=== PATIENT | female | born 1945 | race Caucasian/White ===

== ENCOUNTER 2019-11-18 09:04 | Emergency (ER) | payer MEDICARE, SELFPAY ==
--- NOTE | ~2019-11-18 | CT_ITS ---
EXAMINATION: CT abdomen pelvis w con DATE: 11/18/2019 11:39 INDICATION: Left lower quadrant abdominal pain. TECHNIQUE: Computed tomography (CT) of the abdomen and pelvis was performed with 100 mL Omnipaque 350 intravenous contrast. Automated exposure control and iterative reconstruction technique were employe d. The dose-length product was 418.86 mGy-cm. COMPARISON: CT abdomen and pelvis 10/23/2016 FINDINGS: The visualized portions of the lung bases demonstrate minimal atelectasis. No pleural effus ion. The heart size is normal. No pericardial effusion. There are cysts in the liver measuring up to 3.7 cm. Calcifications in the spleen are consistent with old granulomatous disease. There is an area of peripheral low attenuation in the spleen, new from 10/23/2016, likely an infarct. The pancreas and adrenal glands are normal. There is cortical thinning of the kidneys. There is a 6 mm cyst in right k idney. There are scattered diverticula in the colon. There is fat stranding around a sigmoid divertic ulum, consistent with diverticulitis. There are no dilated loops of bowel. The appendix is not visual ized. There are no pathologically enlarged lymph nodes. There is trace pelvic ascites. There is a jesus ign bone island in right femoral head. There is severe lumbar spondylosis. There are bridging endplat e osteophytes at multiple levels in the thoracic spine, consistent with diffuse idiopathic skeletal h yperostosis (DISH). IMPRESSION: 1. Mild acute sigmoid diverticulitis. No perforation or abscess. 2. Small splenic infarct. Reviewed, dictated and finalized at location A.
[2019-11-18 09:08] VITALS: BP 138/73; PULSE 117; RESP 19; TEMP 37.7; O2SAT 96
--- NOTE | 2019-11-18 09:09 | ED.GENADULT ---
HPI - General Adult General Chief complaint: Abdominal Pain Stated complaint: Abdominal Pain History of Present Illness HPI narrative: Patient is a 74-year-old female who presents to the ER with complaints of body aches and tremors. Patient reports 1 day ago she began feeling unwell and had some left lower quadrant abdominal discomfort. It was not associated with any urinary symptoms or diarrhea. Patient has had persistent nausea today with an episode of emesis. Today she has been having body shaking and tremors. Unable to go into detail but it sounds like it may be rigors from having a fever. Denies any runny nose/sore throat/productive cough. She reports she has been staying home but went out to the grocery store the other day. Otherwise no known sick contacts. Increased anxiety due to COVID in the community. Related Data Allergies Allergy/AdvReac Type Severity Reaction Status Date / Time No Known Allergies Allergy Unknown Unverified 11/18/19 09:09 Review of Systems Review of Systems: All systems reviewed & are unremarkable except as noted in HPI and below Constitutional: Constitutional: Denies chills, Reports fatigue and Reports fever(s) ENT: Denies nasal congestion and Denies sore throat Cardiovascular: Cardiovascular: Denies chest pain Respiratory: Respiratory: Denies cough, Denies dyspnea and Denies wheezing Gastrointestinal: Gastrointestinal: Reports abdominal pain, Denies diarrhea, Reports nausea and Reports vomiting PMFSH Past Medical History Medical History (Updated 11/18/19 @ 13:20 by Amando Doran MD) Hypothyroidism Surgical History Surgical History (Updated 11/18/19 @ 09:18 by Amando Doran MD) History of cholecystectomy Family History Family History (Updated 03/20/16 @ 13:18 by DOCTOR UNKNOWN) Father Hypertension Grandparent Cerebrovascular accident Diabetes mellitus Sibling Family history of Parkinson's disease Mother Family history of diabetes mellitus in first degree relative Other Family history of cardiovascular disease Social History Social History Smoking status: Never smoker Second hand tobacco smoke exposure: No Alcohol intake: current Gender identity (if verbalized by the patient): Female Exam Narrative: Exam Narrative: GENERAL: Fatigued-appearing, well-nourished, and in no acute distress. HEAD: Normocephalic, atraumatic. ENT: Dry mucous membranes. CHEST: Clear to auscultation. No respiratory distress. HEART: Tachycardic and regular. Normal peripheral pulses. ABDOMEN: Soft, nontender, nondistended. EXTREMITIES: Normal range of motion. No edema. SKIN: Warm, dry, no rash. NEURO: Alert and oriented x3. PSYCH: Normal mood and affect. Course Course Emergency Course: Patient informed of results. Contacted Dr. Fragoso regarding splenic infarct, he would like her to contact office for close follow-up. Patient be started on Cipro and Flagyl. Discharge home. Vital Signs Vital signs: Vital Signs Temperature 99.8 F H 11/18/19 09:08 Pulse Rate 117 H 11/18/19 09:08 Respiratory Rate 19 11/18/19 09:08 Blood Pressure 138/73 11/18/19 09:08 Pulse Oximetry 96 11/18/19 09:08 Temperature 99.8 F H 11/18/19 09:08 Pulse Rate 103 H 11/18/19 11:56 Respiratory Rate 19 11/18/19 11:56 Blood Pressure 124/52 L 11/18/19 11:56 Pulse Oximetry 96 11/18/19 11:56 Medical Decision Making Vital Signs Vital Signs: Vital Signs Temperature 99.8 F H 11/18/19 09:08 Pulse Rate 117 H 11/18/19 09:08 Respiratory Rate 19 11/18/19 09:08 Blood Pressure 138/73 11/18/19 09:08 Pulse Oximetry 96 11/18/19 09:08 Temperature 99.8 F H 11/18/19 09:08 Pulse Rate 103 H 11/18/19 11:56 Respiratory Rate 19 11/18/19 11:56 Blood Pressure 124/52 L 11/18/19 11:56 Pulse Oximetry 96 11/18/19 11:56 Lab Data Result diagrams: 11/18/19 09:16 11/18/19 09:16 Labs: Lab Results 11/18/1911/17
[2019-11-18] MEDS: ONDANSETRON INJ 4 MG/2 ML VIAL IV PUSH (09:20)
[2019-11-18] MEDS: SODIUM CHLORIDE 0.9% IV 1,000 ML 999 ML IV CONT (09:20)
[2019-11-18 09:26] LABS: Basophils Percent Auto 0.6 % (0.2-1.2); Eosinophils Absolute Auto 0.1 K/mm3 (0-0.3); Eosinophils Percent Auto 1.1 % (0-4.4); Hematocrit 41.5 % (37.0-47.0); Hemoglobin 14.2 g/dL (12.0-15.0); Immature Granulocyte Absolute 0.04 K/mm3 (0.00-0.031); Immature Granulocyte Percent A 0.7 % (0-0.5); Lymphocytes Absolute Auto 0.41 K/mm3 (0.9-3.2); Lymphocytes Percent Auto 7.6 % (18.3-44.2); Mean Corpuscular HGB Conc 34.2 g/dl (32-36); Mean Corpuscular Hemoglobin 31.2 pg (26-34); Mean Corpuscular Volume 91.2 fl (80-100); Mean Platelet Volume 10.1 fl (7.4-10.4); Monocytes Percent Auto 0.6 % (2.6-8.5); Neutrophils Absolute Auto 4.8 K/mm3 (1.3-6.7); Neutrophils Percent Auto 89.4 % (45.5-73.1); Platelet Count Result 146 k/mm3 (150-375); Red Blood Count 4.55 M/mm3 (4.2-5.4); Red Cell Distribution Width 11.8 % (11.5-14.5); White Blood Count 5.4 K/mm3 (4.5-10.0)
[2019-11-18 09:30] LABS: Add Urine Microscopic? YES; Appearance Urine Clear (Clear); Bilirubin Urine Negative (Negative); Blood Urine 2+ (Negative); Color Urine Yellow (Yellow); Glucose Urine UA Negative (Negative); Ketones Urine Negative (Negative); Leukocyte Esterase Ur Negative LEU/UL (Negative); Mucus Urine Rare /lpf; Nitrate Urine Negative (Negative); Protein Urine Negative (Negative); Specific Grav Ur 1.014 (1.001-1.035); Squamous Epithelial Cell Urine Rare /hpf (Few); Urobilinogen Urine Negative mg/dL (<2.0); WBC Urine 0-3 /hpf
[2019-11-18 09:41] LABS: Alanine Aminotransferase 19 U/L (4-35); Albumin Level 4.2 g/dL (3.5-5.1); Alkaline Phosphatase 68 U/L (38-126); Aspartate Amino Transferase 27 U/L (14-36); Bilirubin,Total 1.3 mg/dL (0.2-1.3); Blood Urea Nitrogen 13 mg/dL (7-17); Calcium 9.3 mg/dL (8.4-10.2); Carbon Dioxide 26 mmol/L (22-30); Chloride 103 mmol/L (98-107); Estimated CRCL calculation 61 ml/min; Estimated Glomerular Filt Rate > 60; Glucose 137 mg/dL (65-105); Lipase 111 U/L (23-300); Sodium 135 mmol/L (137-145)
[2019-11-18 09:59] VITALS: BP 136/56; PULSE 93; RESP 22; O2SAT 98
[2019-11-18 10:58] VITALS: BP 113/49; PULSE 100; RESP 24; O2SAT 99
[2019-11-18 11:56] VITALS: BP 124/52; PULSE 103; RESP 19; O2SAT 96
[2019-11-18 13:18] VITALS: BP 112/61; PULSE 100; RESP 18; O2SAT 98
== END 2019-11-18 13:33 | disposition home or self-care (01) ==
PROVIDERS: Emergency Provider Emergency Medicine; PCP Family Medicine
DX: K57.32 Diverticulitis of large intestine without perforation or abscess without bleeding (principal); D73.5 Infarction of spleen; E03.9 Hypothyroidism, unspecified
CPT/HCPCS: 36415; 51701; 74177; 80053; 81001; 83690; 85025; 96361; 96374; 99284; J2405; J7030; Q9967

== ENCOUNTER → 2020-02-07 11:19 | Outpatient (CLI) | payer MEDICARE, SELFPAY ==
--- NOTE | ~2020-02-07 | DEXA_ITS ---
Bone Density Report Name: Aidee Thompson Age: 74 Sex: Female Ethnicity: White Date of : 1945 Indication: postmenopausal; screening for osteoporosis; height loss; hysterectomy; Referring Provider: Konrad Francis Study: Bone densitometry was performed. Exam Date: February 07, 2020 Accession number: [id number] Bone Density: Region BMD T-score Z-score Classification AP Spine (L1-L4) 1.190 1.3 3.6 Normal Femoral Neck (Left) 0.747 -0.9 1.0 Normal Total Hip (Left) 0.876 -0.5 1.1 Normal Femoral Neck (Right) 0.686 -1.5 0.5 Osteopenia Total Hip (Right) 0.892 -0.4 1.3 Normal Total Hip Mean 0.884 -0.5 1.2 Normal World Health Organization criteria for BMD impression classify patients as: Normal (T-score at or above -1.0), Osteopenia (T-score between -1.0 and -2.5), or Osteoporosis (T-score at or below -2.5). 10-year Fracture Risk(1): Major Osteoporotic Fracture 10% Hip Fracture 1.7% Reported Risk Factors: [place] (), Neck BMD=0.686, BMI=27.8 (1) FRAX(R) Version 3.08. Fracture probability calculated for an untreated patient. Fracture probability may be lower if the patient has received treatment. Previous Exams: Region Exam Age BMD T-score BMD Change BMD Change Date g/cm2 vs Baseline vs Previous AP Spine(L1-L4) 02/07/2020 74 1.190 1.3 0.045* 0.069* 01/05/2018 72 1.121 0.7 -0.024* -0.024* 06/08/2015 70 1.145 0.9 Total Hip(Left) 02/07/2020 74 0.876 -0.5 0.028* 0.002 01/05/2018 72 0.874 -0.6 0.026 0.026 06/08/2015 70 0.848 -0.8 Total Hip(Right) 02/07/2020 74 0.892 -0.4 -0.021 -0.008 01/05/2018 72 0.901 -0.3 -0.013 -0.013 06/08/2015 70 0.914 -0.2 *Denotes significance at 95% confidence level, LSC for AP Spine = 0.022 g/cm2, LSC for Total Hip = 0.027 g/cm2 Clinical Information Provided by Patient: Has used the following medications: Vitamin D, Calcium Has the following medical conditions: Hysterectomy Patient maximum height was 68 Menopause Age: 49 No regular weight bearing exercise Drinks caffeinated beverages Onset of menses at age 15 Number of children 2 Impression: The patient has low bone mass, based on the Right Femoral Neck T-score. The patient has an estimated ten-year risk of hip fracture of 1.7% and an estimated ten-year risk of major fracture of 10%, based on the WHO FRAX a
== END ==
PROVIDERS: Visit Provider Obstetrics & Gynecology
DX: N95.9 Unspecified menopausal and perimenopausal disorder (principal); M85.851 Other specified disorders of bone density and structure, right thigh
CPT/HCPCS: 77080

== ENCOUNTER 2020-08-15 10:39 | Outpatient (CLI) | payer MEDICARE, SELFPAY ==
--- NOTE | ~2020-08-15 | XR_ITS ---
EXAMINATION: XR hand BI arthritis min 3V EXAM DATE: 08/15/2020 11:07 INDICATION: M21.941 - Unspecified acquired deformity of hand, right hand. TECHNIQUE: Right hand frontal, lateral and oblique projections obtained and reviewed. Left hand fron maximo, lateral and oblique projections obtained and reviewed. Catchers projection of both hands. There is no prior study for comparison. FINDINGS: Right hand: There is severe arthritis right 3rd distal interphalangeal joint, moderate at the 5th dis maximo interphalangeal joint and 1st carpometacarpal joint. Moderate to severe arthritis of the triscaph e joint. Less arthritis at other joints. Left hand: There is severe left hand arthritis of the 2nd interphalangeal joints and the 3rd distal i nterphalangeal joint. Moderate to severe triscaphe osteoarthritis. Less arthritis at the other joints . There are no bony erosions identified. 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 Reviewed, dictated and finalized at location B. OPEDIC CODER IMPRESSION: Bilateral hand polyarticular arthritis, most likely primary osteoar thritis.
== END 2020-08-15 10:40 | disposition home or self-care (01) ==
LOC: ANHIMG 10:47
PROVIDERS: PCP Family Medicine; Visit Provider Nurse Practitioner Family
DX: M21.941 Unspecified acquired deformity of hand, right hand (principal); M21.942 Unspecified acquired deformity of hand, left hand; M19.042 Primary osteoarthritis, left hand; M19.041 Primary osteoarthritis, right hand
CPT/HCPCS: 73130

== ENCOUNTER 2020-11-01 09:57 | Outpatient (CLI) | payer MEDICARE, SELFPAY ==
--- NOTE | ~2020-11-01 | XR_ITS ---
EXAMINATION: XR lumbar spine 2-3V EXAM DATE: 11/01/2020 10:18 INDICATION: Low back pain with sciatica. States history of recent fall. Initial encounter. TECHNIQUE: Lumber spine frontal, lateral, lateral L5-S1 projections for interpretation. There is no prior study for comparison. FINDINGS: There is 5 mm anterolisthesis L3 on L4 without evidence of spondylolysis. The vertebral corey dies are otherwise aligned. Moderate disc disease L4-5 and L5-S1, mild to moderate at L3-4 and mild a t the levels above. Mild chronic appearing compression at the superior endplate of L3. Moderate-sized bridging thoracolumbar endplate osteophytes, consistent with diffuse idiopathic skeletal hyperostosi s. There are cholecystectomy clips. Sacrum, sacroiliac joints, sacral arcuate lines are intact. There is advanced lumbar facet arthropathy. IMPRESSION: 1. Mild L3 compression, without findings to suggest this is acute. 2. Advanced lumbar spondylosis. 3. Moderate lower lumbar disc disease. 4. L3/4 grade 1 anterolisthesis. Reviewed, dictated and finalized at location A.
== END 2020-11-01 09:58 | disposition home or self-care (01) ==
PROVIDERS: PCP Family Medicine; Visit Provider Nurse Practitioner Family
DX: M47.817 Spondylosis without myelopathy or radiculopathy, lumbosacral region (principal); M54.40 Lumbago with sciatica, unspecified side
CPT/HCPCS: 72100

== ENCOUNTER 2020-11-26 09:48 | Outpatient (RCR) | payer MEDICARE, SELFPAY ==
--- NOTE | 2020-11-26 11:14 | PTOPEVAL ---
PHYSICAL THERAPY EVALUATION/DISCHARGE Thank you for referring Aidee Thompson to [facility] The patient has been evaluated for the dx of low back pain with pain resolved at [facility]. The pt was given exercises and PT DC'ed. Please review, sign, date and return this plan of care ISA. I agree with and certify that the following plan of care is medically necessary. Referring Physician Date Attending Provider: Jamal Brown NP *PT Outpatient Evaluation Start: 11/26/20 10:07 Freq: Status: Active Protocol: Document 11/26/20 10:07 MLV (Rec: 11/26/20 11:05 [facility] [email or web address]) Therapy Assessment Status Assessment Status Evaluation Evaluation Information Problem Diagnosis Low back pain Onset 1 month ago Cause fell Additional Evaluation Detail Pt fell, tripping over a cord and hurt her back +hit the back of her head. The pt had a trip to [place] planned the. day after, rode there and back, then had an increase in back pain. Pt has since then, rested and her back is better in the last week. Pt lives home with spouse, is retired, does her housework, cooking and shopping. Pt's hobbies are sewing, reading, computer and walks for exercise. Subjective Information Pt wants to get checked and Query Text:As Reported By Patient/ see if she needs therapy or if Family she can just learn some exercises to do on her own. Pt feels her pain is gone but she hasn't pushed her activities to see if she is ok with everything. Previous Treatments Previous Treatments For This Problem none Pain Assessment Timing of Pain Assessment Timing of Pain Assessment Assessment Pain Scale Pain Scale Used Numeric (1 - 10) Self Report Pain Assessment Lower Back Reported Pain Level 0 Pain Frequency Acute Other Pain Description pain before was 6-7 with sitting; now resolved Pain Score Pain Score 0: Self Report Interventions Used Interventions Used By Clinicians Education,Exercise Pain Relief Interventions Used By Heat,Inactivity/Rest,Position Patient Change Other Alleviating Interventions ibuprofen; none since pain alleviated Cervical an
== END 2020-11-27 09:04 | disposition home or self-care (01) ==
LOC: ANHPT 09:48
PROVIDERS: PCP Family Medicine; Visit Provider Nurse Practitioner Family
DX: M54.40 Lumbago with sciatica, unspecified side (principal)
CPT/HCPCS: 97110; 97161

== ENCOUNTER 2021-02-06 09:09 | Outpatient (CLI) | payer MEDICARE, SELFPAY ==
[2021-02-06 09:49] LABS: Anion Gap 6 mmol/L (8-16); Blood Urea Nitrogen 12 mg/dL (7-17); Calcium 9.4 mg/dL (8.4-10.2); Carbon Dioxide 29 mmol/L (22-30); Chloride 103 mmol/L (98-107); Cholesterol 206 mg/dL (0-200); Estimated Glomerular Filt Rate > 60; Glucose 127 mg/dL (65-105); HDL Direct 45 mg/dL; Potassium 4.3 mmol/L (3.4-5.0); Sodium 138 mmol/L (137-145); Triglycerides 167 mg/dL (<150)
[2021-02-06 10:00] LABS: LDL Cholesterol Direct 112 mg/dL
[2021-02-06 10:24] LABS: Vitamin D 25 Hydroxy 45.8 ng/mL
== END 2021-02-06 09:10 | disposition home or self-care (01) ==
PROVIDERS: PCP Family Medicine; Visit Provider Nurse Practitioner Family
DX: E03.9 Hypothyroidism, unspecified (principal); E55.9 Vitamin D deficiency, unspecified; E78.2 Mixed hyperlipidemia
CPT/HCPCS: 36415; 80048; 80061; 82306; 84436; 84443

== ENCOUNTER 2021-02-19 09:48 | Outpatient (CLI) | payer MEDICARE, SELFPAY ==
[2021-02-19 10:11] LABS: Hematocrit 41.8 % (37.0-47.0); Mean Corpuscular HGB Conc 33.5 g/dl (32-36); Mean Corpuscular Hemoglobin 31.3 pg (26-34); Mean Corpuscular Volume 93.5 fl (80-100); Mean Platelet Volume 10.1 fl (7.4-10.4); Platelet Count Result 220 k/mm3 (150-375); Red Blood Count 4.47 M/mm3 (4.2-5.4); Red Cell Distribution Width 11.9 % (11.5-14.5); White Blood Count 5.1 K/mm3 (4.5-10.0)
[2021-02-19 10:27] LABS: Hemoglobin A1C 5.9 % (<5.7)
[2021-02-19 11:20] LABS: Free T4 Free Thyroxine 1.41 ng/mL (0.78-2.19)
== END 2021-02-19 09:49 | disposition home or self-care (01) ==
PROVIDERS: PCP Family Medicine; Referring Provider Nurse Practitioner Family; Visit Provider Nurse Practitioner Family
DX: E03.9 Hypothyroidism, unspecified (principal); D69.6 Thrombocytopenia, unspecified; R73.03 Prediabetes
CPT/HCPCS: 36415; 83036; 84439; 84443; 85027

== ENCOUNTER 2021-09-27 13:33 | Outpatient (CLI) | payer MEDICARE, SELFPAY ==
[2021-09-27 13:57] LABS: Basophils Absolute Auto 0.1 K/mm3 (0.0-0.1); Basophils Percent Auto 0.8 % (0.2-1.2); Eosinophils Absolute Auto 0.2 K/mm3 (0-0.3); Eosinophils Percent Auto 3.6 % (0-4.4); Hematocrit 42.9 % (37.0-47.0); Hemoglobin 14.4 g/dL (12.0-15.0); Immature Granulocyte Absolute 0.02 K/mm3 (0.00-0.031); Immature Granulocyte Percent A 0.3 % (0-0.5); Mean Corpuscular HGB Conc 33.6 g/dl (32-36); Mean Corpuscular Hemoglobin 30.7 pg (26-34); Mean Corpuscular Volume 91.5 fl (80-100); Mean Platelet Volume 9.7 fl (7.4-10.4); Monocytes Absolute Auto 0.6 K/mm3 (0.1-0.6); Neutrophils Absolute Auto 3.8 K/mm3 (1.3-6.7); Neutrophils Percent Auto 62.3 % (45.5-73.1); Platelet Count Result 230 k/mm3 (150-375); Red Blood Count 4.69 M/mm3 (4.2-5.4); Red Cell Distribution Width 12.1 % (11.5-14.5); White Blood Count 6.1 K/mm3 (4.5-10.0)
[2021-09-27 14:14] LABS: Alanine Aminotransferase 16 U/L (4-35); Albumin Level 4.4 g/dL (3.5-5.1); Alkaline Phosphatase 65 U/L (38-126); Anion Gap 5 mmol/L (8-16); Aspartate Amino Transferase 24 U/L (14-36); Bilirubin,Total 0.4 mg/dL (0.2-1.3); Blood Urea Nitrogen 12 mg/dL (7-17); Calcium 9.4 mg/dL (8.4-10.2); Carbon Dioxide 31 mmol/L (22-30); Chloride 103 mmol/L (98-107); Cholesterol 208 mg/dL (0-200); Estimated Glomerular Filt Rate > 60; Glucose 96 mg/dL (65-110); HDL Direct 44 mg/dL; Potassium 4.2 mmol/L (3.4-5.0); Sodium 139 mmol/L (137-145); Triglycerides 188 mg/dL (<150)
[2021-09-27 14:25] LABS: LDL Cholesterol Direct 114 mg/dL
[2021-09-27 14:31] LABS: Free T4 Free Thyroxine 1.28 ng/mL (0.78-2.19); Vitamin D 25 Hydroxy 35.1 ng/mL
[2021-09-27 17:33] LABS: Hemoglobin A1C 5.9 % (<5.7)
== END 2021-09-27 13:34 | disposition home or self-care (01) ==
PROVIDERS: PCP Family Medicine; Visit Provider Nurse Practitioner Family
DX: E55.9 Vitamin D deficiency, unspecified (principal); D64.9 Anemia, unspecified; E78.2 Mixed hyperlipidemia; R73.03 Prediabetes; E03.9 Hypothyroidism, unspecified
CPT/HCPCS: 36415; 80053; 80061; 82306; 83036; 84439; 84443; 85025

== ENCOUNTER → 2022-04-24 11:04 | Outpatient (CLI) | payer MEDICARE, SELFPAY ==
--- NOTE | ~2022-04-24 | DEXA_ITS ---
Bone Density Report Name: CLARITZA VENTURA Age: 77 Sex: Female Ethnicity: White Date of : 1945 Indication: postmenopausal; screening for osteoporosis; height loss; hysterectomy; Referring Provider: Edith Bui Study: Bone densitometry was performed. Exam Date: April 24, 2022 Accession number: [id number] Bone Density: Region BMD T-score Z-score Classification AP Spine (L1-L4) 1.231 1.7 4.1 Normal Femoral Neck (Left) 0.762 -0.8 1.3 Normal Total Hip (Left) 0.861 -0.7 1.1 Normal Femoral Neck (Right) 0.689 -1.4 0.6 Osteopenia Total Hip (Right) 0.845 -0.8 1.0 Normal Total Hip Mean 0.853 -0.8 1.1 Normal World Health Organization criteria for BMD impression classify patients as: Normal (T-score at or above -1.0), Osteopenia (T-score between -1.0 and -2.5), or Osteoporosis (T-score at or below -2.5). 10-year Fracture Risk(1): Major Osteoporotic Fracture 11% Hip Fracture 2.1% Reported Risk Factors: [place] (), Neck BMD=0.689, BMI=26.6 (1) FRAX(R) Version 3.08. Fracture probability calculated for an untreated patient. Fracture probability may be lower if the patient has received treatment. Previous Exams: Region Exam Age BMD T-score BMD Change BMD Change Date g/cm2 vs Baseline vs Previous AP Spine(L1-L4) 04/24/2022 77 1.231 1.7 0.086* 0.040* 02/07/2020 74 1.190 1.3 0.045* 0.069* 01/05/2018 72 1.121 0.7 -0.024* -0.024* 06/08/2015 70 1.145 0.9 Total Hip(Left) 04/24/2022 77 0.861 -0.7 0.014 -0.015 02/07/2020 74 0.876 -0.5 0.028* 0.002 01/05/2018 72 0.874 -0.6 0.026 0.026 06/08/2015 70 0.848 -0.8 Total Hip(Right) 04/24/2022 77 0.845 -0.8 -0.068* -0.047* 02/07/2020 74 0.892 -0.4 -0.021 -0.008 01/05/2018 72 0.901 -0.3 -0.013 -0.013 06/08/2015 70 0.914 -0.2 *Denotes significance at 95% confidence level, LSC for AP Spine = 0.022 g/cm2, LSC for Total Hip = 0.027 g/cm2 Clinical Information Provided by Patient: Has used the following medications: Vitamin D, Calcium Has the following medical conditions: Hysterectomy Patient maximum height was 70 Menopause Age: 49 Drinks caffeinated beverages Onset of menses at age 15 Number of children 2 Impression: The patient has low bone mass, based on the Right Fem
== END ==
PROVIDERS: PCP Family Medicine; Visit Provider Nurse Practitioner Family
DX: Z13.820 Encounter for screening for osteoporosis (principal); Z78.0 Asymptomatic menopausal state; M85.851 Other specified disorders of bone density and structure, right thigh
CPT/HCPCS: 77080

== ENCOUNTER 2022-09-23 00:23 | Day surgery (SDC) | payer MEDICARE, SELFPAY ==
[2022-09-08 14:05] VITALS: BMI 24.3
--- NOTE | 2022-09-22 15:37 | WPDANESEPPF ---
Anes - Initial Pre Proc Eval Procedure: Operation Date: 09/23/22 10:30 Proposed Procedures p Screening Colonoscopy - Petey Hernández MD Date/Time: 09/22/22 15:37 Surgeon: Petey Hernández MD Pre Op Diagnosis: hx of colon polyps Patient Data Age: 77 Gender: F Height: 1.7 m Weight: 70.5 kg Allergies Allergy/AdvReac Type Severity Reaction Status Date / Time No Known Allergies Allergy Unknown Verified 09/23/22 09:09 Home Medications Medication Instructions Recorded Confirmed Type clobetasol 0.05 % scalp solution 1 applic topical DAILY 11/29/21 09/23/22 History spironolactone 100 mg tablet 100 mg PO DAILY 11/29/21 09/23/22 History calcium carbonate 600 mg calcium 600 mg PO DAILY 03/18/22 09/23/22 History (1,500 mg) tablet rgpxmctg-mje-[id number] ac 400 1 tablet PO .qd 03/18/22 09/23/22 History mcg-calcium carb 500 mg-vit K1 20 mcg tablet (Women's 50 Plus Multivitamin) saw palmetto 450 mg capsule 900 mg PO DAILY 03/18/22 09/23/22 History levothyroxine 75 mcg tablet 75 mcg PO DAILY #90 tabs 09/01/22 09/23/22 Rx Patient hx anesthesia problems: none Family hx anesthesia problems: none Results Review: All pre-operative results and documents have been reviewed as part of the pre-operative evaluation. [facility] Past Medical History Medical History (Updated 09/23/22 @ 09:37 by Petey Hernández MD) Aftercare following left finger joint replacement surgery BMI 27.0-27.9,adult BMI 28.0-28.9,adult Hypothyroidism Surgical History Surgical History (Updated 09/22/22 @ 15:38 by Apolinar Chong DO) History of cholecystectomy History of hysterectomy Family History Family History Father Hypertension Grandparent Cerebrovascular accident Diabetes mellitus Sibling Family history of Parkinson's disease Mother Family history of diabetes mellitus in first degree relative Sibling , dementia Carcinoma of colon Other Family history of cardiovascular disease Social History Social History Smoking status: Never smoker Second hand tobacco smoke exposure: No Alcohol intake: current Drinks per week: 1 Substance use: never Substance use type: does not use Living arrangements: with family Occupation/Education: retired 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 Informed Consent: The patient's anesthetic plan and its attendant risks and benefits were discussed with the patient/family/POA. Questions were solicited and answers provided to the satisfaction of the patient/family/POA.
[2022-09-23 09:10] VITALS: BP 128/75; PULSE 95; RESP 16; TEMP 36.6; O2SAT 99
[2022-09-23] MEDS: LACTATED RINGERS 1,000 ML 150 ML IV CONT (09:13)
--- NOTE | 2022-09-23 09:35 | PM.HPGS ---
History of Present Illness History of Present Illness Consent: Risks, benefits, and alternatives have been discussed and questions answered. Patient agrees to proceed with procedure. Chief complaint: hx of colon polyps Narrative: Aidee Thompson is a 77 year old female Presents for colonoscopy. Patient's current weight appetite and bowel movements are normal. Patient denies abdominal pain. She has had no bleeding. Family history is noncontributory. Patient has a history of adenomatous colon polyp removed by prior colonoscopy in 2017. Patient presents today for screening colonoscopy Review of Systems Review of Systems: review of systems noncontributory. [facility] Past Medical History Medical History (Updated 09/23/22 @ 09:37 by Petey Hernández MD) Aftercare following left finger joint replacement surgery BMI 27.0-27.9,adult BMI 28.0-28.9,adult Hypothyroidism Surgical History Surgical History (Updated 09/22/22 @ 15:38 by Apolinar Chong DO) History of cholecystectomy History of hysterectomy Family History Family History Father Hypertension Grandparent Cerebrovascular accident Diabetes mellitus Sibling Family history of Parkinson's disease Mother Family history of diabetes mellitus in first degree relative Sibling , dementia Carcinoma of colon Other Family history of cardiovascular disease Social History Social History Smoking status: Never smoker Second hand tobacco smoke exposure: No Alcohol intake: current Drinks per week: 1 Substance use: never Substance use type: does not use Living arrangements: with family Occupation/Education: retired 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 Gender identity (if verbalized by the patient): Female Meds Home Medications and Allergies Home Medications Medication Instructions Recorded Confirmed Type clobetasol 0.05 % scalp solution 1 applic topical DAILY 11/29/21 09/23/22 History spironolactone 100 mg tablet 100 mg PO DAILY 11/29/21 09/23/22 History calcium carbonate 600 mg calcium 600 mg PO DAILY 03/18/22 09/23/22 History (1,500 mg) tablet ugpaeqwe-dcg-qkhvq ac 400 1 tablet PO .qd 03/18/22 09/23/22 History mcg-calcium carb 500 mg-vit K1 20 mcg tablet (Women's 50 Plus Multivitamin) saw palmetto 450 mg capsule 900 mg PO DAILY 03/18/22 09/23/22 History levothyroxine 75 mcg tablet 75 mcg PO DAILY #90 tabs 09/01/22 09/23/22 Rx Allergies Allergy/AdvReac Type Severity Reaction Status Date / Time No Known Allergies Allergy Unknown Verified 09/23/22 09:09 Vital Signs Vital Signs - 24 hr 09/23/22 09:10 Temperature 97.8 F Pulse Rate 95 Respiratory Rate 16 Blood Pressure 128/75 Pulse Oximetry 99 Oxygen Delivery Room Air Exam Narrative: Physical exam reveals patient to be alert. Vital signs stable. HEENT exam is unremarkable. Patient is anicteric. Lungs are clear to auscultation and percussion. Heart is without murmur or extra sounds. Abdomen bowel sounds present soft nontender with no organomegaly. Digital external rectal exam is normal. Assessment and Plan Assessment and plan (1) History of colon polyps: Code(s): Z86.010 - Personal history of colonic polyps Status: Acute Assessment and Plan: Patient has a history of benign adenomatous colon polyp removed the colon in 2017. Plan for surveillance colonoscopy now and consider this at 5 years.
[2022-09-23 10:49] VITALS: BP 101/48; PULSE 72; RESP 17; O2SAT 96
[2022-09-23 10:59] VITALS: BP 107/54; PULSE 69; RESP 21; O2SAT 99
[2022-09-23 11:09] VITALS: BP 112/75; PULSE 67; RESP 22; O2SAT 100
== END 2022-09-23 11:17 | disposition home or self-care (01) ==
PROVIDERS: PCP Family Medicine; Visit Provider Internal Medicine Gastroenterology
PROC: 0DJD8ZZ Inspection of Lower Intestinal Tract, Via Natural or Artificial Opening Endoscopic (ICD-10-PCS; CPT 45378; principal; 2022-09-23 10:30)
DX: Z12.11 Encounter for screening for malignant neoplasm of colon (principal); K64.8 Other hemorrhoids; K57.30 Diverticulosis of large intestine without perforation or abscess without bleeding; Z86.010 Personal history of colon polyps; E03.9 Hypothyroidism, unspecified
CPT/HCPCS: G0105; J2704; J7120

== ENCOUNTER 2023-02-23 16:30 | Outpatient (CLI) | payer MEDICARE, SELFPAY ==
--- NOTE | ~2023-02-23 | MR_ITS ---
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 These were followed by axial T2-weigh brittny, diffusion weighted, gradient, and FLAIR images. Following intravenous administration of 13 cc Mu ltiHance gadolinium, T1-weighted fat-sat imaging was performed in the axial, coronal, and sagittal pl anes. Findings: There is no acute infarct or intracranial hemorrhage. There is a 1.5 cm enhancing extra-axi al mass along the right frontal convexity, most compatible with meningioma. No other intracranial mas s seen. There are mild chronic microvascular ischemic changes in the periventricular white matter hari aterally. Ventricles and subarachnoid spaces are unremarkable. Orbits are unremarkable. Paranasal sinuses and m astoid air cells are clear. Major intracranial flow voids are intact. Sagittal midline structures are intact. No other abnormal postcontrast enhancement identified. IMPRESSION: 1.5 cm meningioma along the right frontal convexity. Mild chronic microvascular ischemic changes. Reviewed, dictated and finalized at location M.
== END 2023-02-23 16:31 | disposition home or self-care (01) ==
PROVIDERS: PCP Family Medicine; Visit Provider Family Medicine
DX: D42.0 Neoplasm of uncertain behavior of cerebral meninges (principal)
CPT/HCPCS: 70553; A9577

== ENCOUNTER 2023-03-20 07:52 | Outpatient (CLI) | payer MEDICARE, SELFPAY ==
[2023-03-20 10:50] LABS: Hematocrit 45.6 % (37.0-47.0); Hemoglobin 15.4 g/dL (12.0-15.0); Mean Corpuscular HGB Conc 33.8 g/dl (32-36); Mean Corpuscular Volume 97.6 fl (80-100); Mean Platelet Volume 10.3 fl (7.4-10.4); Platelet Count Result 228 k/mm3 (150-375); Red Blood Count 4.67 M/mm3 (4.2-5.4); Red Cell Distribution Width 11.6 % (11.5-14.5)
[2023-03-20 11:05] LABS: Alanine Aminotransferase 20 U/L (6-35); Albumin Level 4.7 g/dL (3.5-5.1); Alkaline Phosphatase 65 U/L (38-126); Anion Gap 8 mmol/L (8-16); Aspartate Amino Transferase 25 U/L (14-36); Bilirubin,Total 0.8 mg/dL (0.2-1.3); Blood Urea Nitrogen 17 mg/dL (7-17); Calcium 10.1 mg/dL (8.4-10.2); Carbon Dioxide 30 mmol/L (22-30); Chloride 100 mmol/L (98-107); Cholesterol 210 mg/dL (0-200); Estimated Glomerular Filt Rate > 60; Glucose 98 mg/dL (65-110); HDL Direct 44 mg/dL; Potassium 4.4 mmol/L (3.4-5.0); Sodium 138 mmol/L (137-145); Triglycerides 148 mg/dL (<150)
[2023-03-20 11:16] LABS: LDL Cholesterol Direct 130 mg/dL
[2023-03-20 11:28] LABS: Vitamin D 25 Hydroxy 48.8 ng/mL
[2023-03-20 11:34] LABS: Thyroid Stimulating Hormone 0.101 uIU/mL (0.465-4.680)
== END 2023-03-20 07:53 | disposition home or self-care (01) ==
PROVIDERS: PCP Family Medicine; Visit Provider Nurse Practitioner Family
DX: E78.2 Mixed hyperlipidemia (principal); E03.9 Hypothyroidism, unspecified; E55.9 Vitamin D deficiency, unspecified
CPT/HCPCS: 36415; 80053; 80061; 82306; 84436; 84443; 85027

== ENCOUNTER 2024-04-21 14:17 | Outpatient (CLI) | payer MEDICARE, SELFPAY ==
--- NOTE | ~2024-04-21 | MR_ITS ---
EXAMINATION: MR brain/brain stem wo/w con DATE: 04/21/2024 15:04 INDICATION: Benign neoplasm of cerebral meninges. TECHNIQUE: Magnetic resonance imaging (MRI) of the brain and brainstem was performed without and with 13 mL MultiHance intravenous contrast. COMPARISON: Brain MRI 02/23/2023 FINDINGS: There are scattered areas of nonspecific increased T2-weighted signal intensity in the cere bral white matter, which is within normal limits for the patient's age. There is no acute ischemic i nfarct or intracranial hemorrhage. There is a 1.7 x 1.1 x 1.5 cm enhancing extra-axial mass overlying right frontal lobe, consistent with a meningioma. The ventricles are normal in size. The orbits are normal. The paranasal sinuses are clear. The mastoid air cells are normal. IMPRESSION: 1. Stable 1.7 cm meningioma overlying right frontal lobe. Reviewed, dictated and finalized at location A.
== END 2024-04-21 14:18 | disposition home or self-care (01) ==
PROVIDERS: PCP Family Medicine; Visit Provider Nurse Practitioner Family
DX: D32.0 Benign neoplasm of cerebral meninges (principal)
CPT/HCPCS: 70553; A9577

== ENCOUNTER 2024-11-14 14:59 | Outpatient (CLI) | payer MEDICARE, SELFPAY ==
--- NOTE | ~2024-11-14 | XR_ITS ---
AP view of the pelvis and AP and lateral views of the right hip Clinical history: Pain Findings: No acute fracture or dislocation is seen. Osseous alignment is anatomic. Bilateral hip join ts demonstrate minimal degenerative change. There is moderate degenerative change of both SI joints. Soft tissues are unremarkable. Impression: Minimal degenerative change of both hip joints. Moderate degenerative change of both SI joints. Reviewed, dictated and finalized at location M. Impression: Minimal degenerative change of both hip joints. Moderate degenerative change of both SI joints.
--- NOTE | ~2024-11-14 | XR_ITS ---
Lumbosacral Spine: AP and lateral views Clinical History: Pain COMPARISON: 11/01/2020 Findings: There is straightening of the normal lumbar lordosis. There is 1 cm anterolisthesis of L3 o rolando L4. There is severe degenerative spurring at L4-L5 and L5-S1. There is severe facet arthropathy t hroughout the lumbar spine. There is moderate degenerative change at L2-L3. The sacroiliac joints are normally outlined. Impression: Severe degenerative spondylosis, as above. 1 cm anterolisthesis of L3 over L4. Reviewed, dictated and finalized at location . Impression: Severe degenerative spondylosis, as above. 1 cm anterolisthesis of L3 over L4.
--- OUTSIDE RECORDS SUMMARY | 2024-11-14 16:51 | XMS_ITS | Clinical Summary ---
Author Organization [facility] Address [address] [place] [address] Care Team Providers Care Industrial Robotics Mechanic Name Role Phone Constantine Hall MD Primary Care Provider [phone] Constantine Hall MD Unavailable [phone] Jese Francis MD Unavailable [phone] Allergies No known active allergies Medications calcium carbonate/vitam in D3 (CALCIUM 600 WITH VITAMIN D3 ORAL) Take 1 tablet by mouth every morning Active multivitamin-Ca -iron-minerals (Multiple Vitamin, Womens) tablet 01/06/2019 Acti ve clobetasoL (TEMOVATE) 0.05 % external solution APPLY 2-3 DROPS ON SCALP TWICE DAILY X 4 WEEKS. DO NOT APPLY TO FACE. MUST TAKE 2 WEEK BREAK BEFORE RESTARTING. 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 11/29/2020 Overview (11/29/2020): Added automatically from request for surgery [id number] History of COVID-19 11/12/2020 Polyarticular osteoarthritis 10/02/2020 Pulmonary hypertension 10/22/2018 Palpitations 07/29/2018 Hypothyroidism 07/29/2018 Chest tightness 07/29/2018 Gastroesophageal reflux disease without esophagi tis 07/29/2018 Fibrocystic breast changes, bilateral 03/02/2018 Menopause 12/21/2017 Asymptomatic microscopic hematuria 12/21/2017 Abnormal mammogram 02/06/2017 Atypical squamous cells of u ndetermined significance on cytologic smear of vagina (ASC-US) 12/31/[address] of the abdomen 12/19/2016 Abnormal cervical Papanicolaou smear 05/01/2015 Immunizations Immunization Administration Dates Next Due Influenza, Quad, Adjuvantated, Intramuscular Influenza, Quadrivalent, Rec ombinant, Egg Free, Preservative Free, Intramuscular 05/20/2019 Influenza, Trivalent, High D ose, Split, Preservative Free, Intramuscular 04/08/2018,07/21/2013 Tdap 08/03/2012 ZOSTER Recombinant 04/28/2020 Surgical History Surgery Date Site/Laterality Comments COLONOSCOPY 08/03/2015 - 08/02/2016 SECTION x2 HYSTERECTOMY 08/03/1993 - 08/02/1994 CHOLECYSTECTOMY 08/03/2015 - 08/02/2016 Medical History Medical History Date Comments Thyroid disease Sinusitis Acid indigestion Irregular heart beat History of stress test Arthritis Thyroid disorder Difficulty hearing Wears glasses PONV (postoperative nausea and vomiting) Hypercholesteremia GERD (gastroesophageal reflux disease) Arthritis Palpitations Family History Medical History Relation Name Comments Liver cancer Brother 1 Catarino Caballero Family histo ry of liver cancer - (Added by TW Conv) Memory loss Brother 1 Catarino N Caballero Parkinsonism Brother 2 Cancer Brother 3 Oh H Caballero Arthritis Father Royce M Caballero Heart attack Father Royce M Caballero Heart disease Father Royce M Caballero Hypertension Father Royce M Caballero Liver cancer Father Royce M Caballero Family his tory of liver cancer - (Added by TW Conv) Prostate cancer Father Royce M Caballero Family history of malignant neoplasm of prostate - (Added by TW Conv) Diabetes Father's Brother Faustino Mendiola Ada Diabetes Maternal Grandfather Catarino Spring Diabetes Mother Michelle Caballero Heart attack Mother Michelle Caballero Fatal ID, age 51 Heart disease Mother Michelle Caballero Dementia Sister 1 Swapna Rivera Memory loss Sister 1 Swapna Rivera Memory loss Sister 2 Michelle Mendoza Relation Name Status Comments Brother 1 Catarino Caballero (Age 69) Brother 2 (Age 72) Brother 3 Oh Caballero Father Royce Caballero (Age 89) Father's Brother Faustino Caballero Maternal Grandfather Catarino Spring Mother Michelle Caballero (Age 51) Sister 1 Swapna Rivera (Age 65) Sister 2 Michelle Mendoza Social History Tobacco Use Types Packs/Day Years Used Date Smoking Tobacco: Never Cigarettes Smokeless Tobacco: Never Tobacco Cessation:Counseling Given: Not Answered Alcohol Use Standard Drinks/Week Comments Not Asked 1 (1 standard drink = 0.6 oz pur e alcohol) rarely AUDIT-C Answer Date Recorded Q1: How often do you have a drink containing alc ohol? Monthly or less 12/25/2020 Q2: How many drinks containi ng alcohol do you have on a typical day when you are drinking? 1 or 2 12/25/2020 Q3: How often do you have si x or more drinks on one occasion? Never 12/25/2020 Comments No Sex and Gender Information Value Date Recorded Sex Assigned at Not on file Legal Sex Female 2:09 AM ACID CLEANER Gender Identity Not on file Sexual Orientation Straight 05/06/2020 7: 28 PM CDT Obstetrics History Para Term AB IAB SAB Ectopic Multiple Livin g Live Births 2 Date Outcome GA Total Labor Labor/2nd/3rd Weight Sex Type Anes PTL Marcie A1 A5 Name Clin Last Filed Vital Signs Vital Sign Reading Time Taken Comments Blood Pressure 114/62 07/20/2024 3:07 PM ACID CLEANER Pulse 78 07/20/2024 3:07 PM ACID CLEANER Temperature 37.4 C (99.4 F) 04/18/2022 11:22 AM CDT Respiratory Rate 18 04/18/2022 11:22 AM CDT Oxygen Saturation 99% 07/20/2024 3:07 PM ACID CLEANER Inhaled Oxygen Concentration - - Weight 67.6 kg (149 lb) 07/20/2024 3:07 PM ACID CLEANER Height 170.2 cm (5' 7 ) 07/20/2024 3:07 PM ACID CLEANER Body Mass Index 23.34 07/20/2024 3:07 PM ACID CLEANER Plan of Treatment Health Maintenance Due Date Last Done Comments Depression Screening 1945 Hepatitis C Screening 1945 Osteoporosis Screening-Bone Density Scan 1945 Hepatitis B Screening 1965 Pneumococcal vaccine 65+ (1 of 1 - PCV) 1997 Well Visit 65+ 2012 Zoster Vaccine (2 of 2) 06/23/2020 04/28/2020 Fall Risk Assessment 12/25/2021 12/25/2020 DTaP/Tdap/Td Vaccine (2 - Td or Tdap) 08/03/2022 08/03/2012 Covid-19 Vaccine (2 - 2023-2 5 season) 2024 08/07/2021 Influenza Vaccine (Season Ended) 2025 04/28/2020, 05/20/2019, 04/08/2018, Additional history exists Breast Cancer Screening-Mammogram Discontinued 06/01/2024, 06/01/2023, 05/14/2022, Additional history exists Medical Devices Implanted Type Area Safety Specialist Device Identifier Shelf Expiration Date Model / Serial / Lot [employer] [id number] Wire Fixation Christian L100mm Od1.1mm Nonsterile - [id number] Implanted:Qty: 2 on 12/25/2020 by Pet, Jovanny Goel MD at [facility] [employer] [id number] / / Explanted Type Area Safety Specialist Device Identifier Shelf Expiration Date Model / Serial / Lot [employer] [id number] Wire Fixation Christian L100mm Od1.1mm Nonsterile - [id number] Explanted:Qty: 1 on 12/25/2020 at [facility] [employer] [id number] / / Procedures Procedure Name Priority Date/Time Associated Diagnosis Comments SCREENING MAMMOGRAM BILATERAL W MAGDI Schedule Routine, Read Routine (OP Routine) 06/01/2024 10:18 AM CDT Fibrocystic breast changes, bilateral from Last 3 Months or Most Recently Relevant to Health Maintenance Results * Screening Mammogram Bilateral W Magdi (06/01/2024 10:18 AM CDT) Anatomical Region Laterality Modality Breast Bilateral Mammography Narrative 06/02/2024 12:59 PM CDT Mammogram Technique: Bilateral Digital Breast Tomosynthesis, Bilateral C-view 2D Screening mammogram. Views obtained: bilateral craniocaudal and bilateral mediolateral oblique. Computer Aided Detection was performed. Mammogram Findings: The present examination has been compared to prior imaging studies performed at [facility] on 05/08/2021, 05/14/2022 and 06/01/2023. There are scattered areas of fibroglandular density. There is no suspicious abnormality in either breast. Impression: There is no mammographic evidence of malignancy. As this patient is over 75 years of age, further mammographic screening can be obtained as clinically indicated. OVERALL FINAL ASSESSMENT: BI-RADS CATEGORY 1: Negative. Procedure Note Elvie Ledesma MD - 06/02/2024 Mammogram Technique: Bilateral Digital Breast Tomosynthesis, Bilateral C-view 2D Screening mammogram. Views obtained: bilateral craniocaudal and bilateral mediolateral oblique. Computer Aided Detection was performed. Mammogram Findings: The present examination has been compared to prior imaging studies performed at [facility] on 05/08/2021, 05/14/2022 and 06/01/2023. There are scattered areas of fibroglandular density. There is no suspicious abnormality in either breast. Impression: There is no mammographic evidence of malignancy. As this patient is over 75 years of age, further mammographic screeningcan be obtained as clinically indicated. OVERALL FINAL ASSESSMENT: BI-RADS CATEGORY 1: Negative. Fartun Levi NP IMG MAMMO PROCEDURES Fin al Result from Last 3 Months or Most Recently Relevant to Health Maintenance Insurance AETNA MEDICARE [facility] MEDIC[facility] Care Teams Industrial Robotics Mechanic Relationship Specialty Start Date End Date Constantine Hall MD PCP - General 01/28/17 Constantine Hall MD 01/28/17 Jese Francis MD [facility] [place] [place] [address] Referring Physician Obstetrics and Gynecology 03/08/21
--- OUTSIDE RECORDS SUMMARY | 2024-11-14 16:51 | XMS_ITS | Clinical Summary ---
Author Organization [facility] Address [address] [place] [id number] Care Team Providers Care Structural Steel Painter Name Role Phone Unavailable Primary Care Provider Unavailabl e Immunizations Immunization Administration Dates Next Due Covid-19, Mrna, Lnp-s, Pf, 30 Mcg/0.3 Ml Dose (P fizer) 08/07/2021 Social History Tobacco Use Types Packs/Day Years Used Date Smoking Tobacco: Never Assessed Comments Unknown Sex and Gender Information Value Date Recorded Sex Assigned at Not on file Legal Sex Female 7:28 PM CDT Gender Identity Not on file Sexual Orientation Not on file Plan of Treatment Health Maintenance Due Date Last Done Comments Hepatitis C Virus (HCV) Screening 1945 Pneumococcal Immunization (50+ years) (1 of 1 - PCV) 1997 Respiratory Syncytial Virus (RSV) Immunization (Adult) (1 - 1-dose 75+ series) 2022 Influenza Immunization (#1) 04/03/202403/04, 04/28/2020, 05/20/2019, Additional history exists SARS-COV-2 Immunization ( season) 2024 08/07/2021, 10/18/2020, 09/25/2020 DTaP/Tdap/Td Immunization Discontinued 08/03/2012 TdaP Immunization Completed 08/03/2012 Zoster Immunization Completed 07/01/2020, 0 Hepatitis B Immunization Aged Out No longer eligible based on patient's age to complete this topic Meningococcal Immunization (ACWY) Aged Out No longer eligible based on patient's age to complete this topic Rotavirus Immunization Aged Out No lo nger eligible based on patient's age to complete this topic
--- OUTSIDE RECORDS SUMMARY | 2024-11-14 16:51 | XMS_ITS | Referral Summary ---
Author Organization [facility] Address [address] [place] [address] Care Team Providers Care Bottom Filler Name Role Phone Constantine Hall MD Primary Care Provider [phone] Constantine Hall MD Unavailable [phone] Jese Francis MD Unavailable [phone] Allergies No known active allergies Medications [...] (11/29/2020): Added automatically from request for surgery [id number] History of COVID-19 11/12/2020 Polyarticular osteoarthritis 10/02/2020 [...] Intramuscular 04/08/2018,07/21/2013 Tdap 08/03/2012 ZOSTER Recombinant 04/28/2020 Social History Tobacco Use Types Packs/Day Years [...] on file Legal Sex Female 2:09 AM LICENSED PSYCHOLOGIST Gender Identity Not on file Sexual Orientation Straight 05/06/2020 7: 28 PM CDT Last Filed Vital Signs Vital Sign Reading Time Taken Comments Blood Pressure 114/62 07/20/2024 3:07 PM LICENSED PSYCHOLOGIST Pulse 78 07/20/2024 3:07 PM LICENSED PSYCHOLOGIST Temperature 37.4 C (99.4 F) 04/18/2022 11:22 AM CDT Respiratory Rate 18 04/18/2022 11:22 AM CDT Oxygen Saturation 99% 07/20/2024 3:07 PM LICENSED PSYCHOLOGIST Inhaled Oxygen Concentration - - Weight 67.6 kg (149 lb) 07/20/2024 3:07 PM LICENSED PSYCHOLOGIST Height 170.2 cm (5' 7 ) 07/20/2024 3:07 PM LICENSED PSYCHOLOGIST Body Mass Index 23.34 07/20/2024 3:07 PM LICENSED PSYCHOLOGIST Plan of Treatment Not on file Medical Devices Implanted Type Area Linux Systems Analyst Device Identifier Shelf Expiration Date Model / Serial / Lot [employer] [id number] Wire Fixation Christian L100mm Od1.1mm Nonsterile - [id number] Implanted:Qty: 2 on 12/25/2020 by Pet, Jovanny Goel MD at [facility] [employer] [id number] / / Explanted Type Area Linux Systems Analyst Device Identifier Shelf Expiration Date Model / Serial / Lot [employer] [id number] Wire Fixation Christian L100mm Od1.1mm Nonsterile - [id number] Explanted:Qty: 1 on 12/25/2020 at [facility] [employer] [id number] / / Procedures Procedure Name Priority Date/Time [...] compared to prior imaging studies performed at [facility] on 05/08/2021, 05/14/2022 and 06/01/2023. There [...] compared to prior imaging studies performed at [facility] on 05/08/2021, 05/14/2022 and 06/01/2023. There [...] Health Maintenance Insurance AETNA MEDICARE [facility] Address: [id number] [place] [address] AETNA MEDICARE Care Teams Bottom Filler Relationship Specialty Start Date End Date Constantine Hall MD PCP - General 01/28/17 Constantine Hall MD 01/28/17 Jese Francis MD [address] [place] [address] Referring Physician Obstetrics and Gynecology 03/08/21
== END 2024-11-14 15:00 | disposition home or self-care (01) ==
PROVIDERS: PCP Family Medicine; Visit Provider Physician Assistant Medical
DX: M47.816 Spondylosis without myelopathy or radiculopathy, lumbar region (principal); M47.817 Spondylosis without myelopathy or radiculopathy, lumbosacral region; M43.16 Spondylolisthesis, lumbar region; M47.818 Spondylosis without myelopathy or radiculopathy, sacral and sacrococcygeal region; M25.551 Pain in right hip; G89.29 Other chronic pain
CPT/HCPCS: 72100; 73502

== ENCOUNTER 2024-12-22 14:11 | Outpatient (CLI) | payer MEDICARE, SELFPAY ==
--- NOTE | ~2024-12-22 | DEXA_ITS ---
Bone Density Report Name: CLARITZA VENTURA Age: 79 Sex: Female Ethnicity: White Date of : 1945 Indication: postmenopausal; screening for osteoporosis; height loss; hysterectomy; Referring Provider: CHRISTINE HENRIQUEZ Study: Bone densitometry was performed. Exam Date: December 22, 2024 Accession number: [id number] Bone Density: Region BMD T-score Z-score Classification AP Spine(L1-L4) 1.208 1.5 4.0 Normal Femoral Neck (Left) 0.750 -0.9 1.3 Normal Total Hip (Left) 0.860 -0.7 1.3 Normal Femoral Neck (Right) 0.663 -1.7 0.5 Osteopenia Total Hip (Right) 0.858 -0.7 1.2 Normal Total Hip Mean 0.859 -0.7 1.3 Normal World Health Organization criteria for BMD impression classify patients as: Normal (T-score at or above -1.0), Osteopenia (T-score between -1.0 and -2.5), or Osteoporosis (T-score at or below -2.5). 10-year Fracture Risk(1): Major Osteoporotic Fracture 13% Hip Fracture 3.1% Reported Risk Factors: [place] (), Neck BMD=0.663, BMI=24.3 (1) FRAX(R) Version 3.08. Fracture probability calculated for an untreated patient. Fracture probability may be lower if the patient has received treatment. Clinical Information Provided by Patient: Has used the following medications: Vitamin D, Calcium Has the following medical conditions: Hysterectomy Patient maximum height was 68 Menopause Age: 49 Drinks caffeinated beverages Onset of menses at age 15 Number of children 2 Impression: The patient has low bone mass, based on the Right Femoral Neck T-score. The patient has an estimated ten-year risk of hip fracture of 3.1% and an estimated ten-year risk of major fracture of 13%, based on the WHO FRAX algorithm. Discussion: BONE DENSITY IS LOW AT ONE OR MORE SKELETAL SITES. THE PATIENT'S BMD AND CLINICAL RISK FACTORS CONTRIBUTE TO THIS PATIENT'S INCREASED RISK OF FRACTURE. This patient's lowest T-score is low at one or more skeletal sites. It meets the World Health Organization's (WHO) criteria for ?low bone mass? (T-score between -1.0 and -2.5). The patient's 10-year risk of hip fracture as calculated by FRAX exceeds the threshold where pharmacological therapy is recommended by the National Osteoporosis Foundation (NOF). However, all treatment decisions require clinical judgment and consideration of individual patient factors, including patient preferences, comorbidities, previous drug use, risk factors not captured in the FRAX model (e.g., frailty, falls, vitamin D deficiency, increased bone turnover, interval significant decline in bone density) and possible under or overestimation of fracture risk by FRAX. The patient should follow a healthful lifestyle (good nutrition with adequate calcium and vitamin D, and appropriate weight-bearing exercise). Follow-Up: Consider a repeat BMD and Vertebral Fracture Assessment (VFA) exam in 2 years or sooner if medically necessary, to reassess this patient's status. Reported by: TERRIE on 12/22/2024 2:51:00 PM. Reviewed, dictated and finalized at location A.
--- OUTSIDE RECORDS SUMMARY | 2024-12-22 14:17 | XMS_ITS | Referral Summary ---
Author Organization [facility] Address [address] [place] [address] Care Team Providers Care Physician Specialist Name Role Phone Constantine Hall MD Primary Care Provider [phone] Constantine Hall MD Unavailable [phone] Jese Francis MD Unavailable [phone] Allergies No known active allergies Medications [...] (11/29/2020): Added automatically from request for surgery [id number] History of COVID-19 11/12/2020 Polyarticular osteoarthritis 10/02/2020 [...] on file Legal Sex Female 2:09 AM LEPIDOPTERIST Gender Identity Not on file Sexual Orientation Straight 05/06/2020 7: 28 PM CDT Last Filed Vital Signs Vital Sign Reading Time Taken Comments Blood Pressure 114/62 07/20/2024 3:07 PM LEPIDOPTERIST Pulse 78 07/20/2024 3:07 PM LEPIDOPTERIST Temperature 37.4 C (99.4 F) 04/18/2022 11:22 AM CDT Respiratory Rate 18 04/18/2022 11:22 AM CDT Oxygen Saturation 99% 07/20/2024 3:07 PM LEPIDOPTERIST Inhaled Oxygen Concentration - - Weight 67.6 kg (149 lb) 07/20/2024 3:07 PM LEPIDOPTERIST Height 170.2 cm (5' 7 ) 07/20/2024 3:07 PM LEPIDOPTERIST Body Mass Index 23.34 07/20/2024 3:07 PM LEPIDOPTERIST Plan of Treatment Not on file Medical Devices Implanted Type Area Kitchen Supervisor Device Identifier Shelf Expiration Date Model / Serial / Lot [employer] [id number] Wire Fixation Christian L100mm Od1.1mm Nonsterile - [id number] Implanted:Qty: 2 on 12/25/2020 by Pet, Jovanny Goel MD at [facility] [employer] [id number] / / Explanted Type Area Kitchen Supervisor Device Identifier Shelf Expiration Date Model / Serial / Lot [employer] [id number] Wire Fixation Christian L100mm Od1.1mm Nonsterile - [id number] Explanted:Qty: 1 on 12/25/2020 at [facility] [employer] [id number] / / Procedures Procedure Name Priority Date/Time [...] compared to prior imaging studies performed at [facility] on 05/08/2021, 05/14/2022 and 06/01/2023. There [...] compared to prior imaging studies performed at [facility] on 05/08/2021, 05/14/2022 and 06/01/2023. There [...] Relevant to Health Maintenance Insurance AETNA MEDICARE [facility] MEDICARE AETNA MEDICARE Care Teams Physician Specialist Relationship Specialty Start Date End Date Constantine Hall MD PCP - General 01/28/17 Constantine Hall MD 01/28/17 Jese Francis MD [address] [place] [address] Referring Physician Obstetrics and Gynecology 03/08/21
--- OUTSIDE RECORDS SUMMARY | 2024-12-22 14:17 | XMS_ITS | Clinical Summary ---
Author Organization [facility] Address [address] [place] [id number] Care Team Providers Care Scientific Illustrator Name Role Phone Unavailable Primary Care Provider [...]
--- OUTSIDE RECORDS SUMMARY | 2024-12-22 14:17 | XMS_ITS | Data Portability ---
Author Organization [facility] [place] Address [address] [place] [address] [place] [address] Care Team Providers Care Accounting Manager Cpa Name Role Phone [facility] OTHER [facility] Primary Care Provider Assessment Encounter Date Assessment Date Assessment LastModified by Organization Details LastModified Time 01/19/2020 01/19/2020 Annual gynecological exam performed. Patient will come back in a year unless there are new symptoms. Not available 01/19/2020 11:09:28 02/11/2021 02/11/2021 Annual gynecological exam performed. Patient will come back in a year unless there are new symptoms. Not available 02/11/2021 10:26:57 Plan of Treatment Reminders Order Date Submit Date Provider Last Modified By Organization Details Last Modified Time Details Appointments None recorded. Lab HbA1c (hemoglobi n A1c), blood 2020 021 [email or web address] [facility] (Lab), [address], [place], [address], 1 13:00:39 urinalysis , dipstick 2019 020 [email or web address] [place], [facility] [address], [place], [address], 0 22:34:16 Referral None recorded. Procedures None recorded. Surgeries None recorded. Imaging None recorded. Medication Orders None recorded. Patient TargetsNo targets recorded. Patient InstructionsNo instructions recorded. Reason for Referral None Reported. Results Created Date Observation Date Name Description Value Unit Range Abnormal Flag Note LastModifiedBy Organization Detail LastModifiedTime 01/19/20 20 01/21/2020 cultu re, urine specimen source Urine - Void Not Available [facility] ([facility]) [address], [place], [address], 01/21/2020 01:39:34 01/19/20 20 01/21/2020 cultu re, urine culture, urine See Below No growt h Not Available [facility] ([facility]) [address], [place], [address], 01/21/2020 01:39:34 01/19/20 20 01/23/2020 pap, LB Pap test thin prep Negati ve for Intrae pithel ial Lesion or Malign jodie normal ACCES JEFF #: [id number] Sourc e: Cervi tej/E ndoce rvica l LMP: 08/03 Date Taken : 01/18 Speci men Type: ThinP rep Vial Date Repor brittny: 2019 Clini tej Data: Cytot ech: Diamond lam CT( CP) Date Repor brittny: 2019 Speci men Adequ acy: Satis facto ry for evalu ation Gener al Categ oriza tion: NEGAT JASON FOR INTRA EPITH ELIAL LESIO N OR MALIG ANNIE Inter preta tion/ Resul t: Atrop hy This speci men has been bertin zed by the ThinP rep Imagi ng Syste m, an inter activ e compu ter syste m which srihdar ts the lab in the scree vero of ThinP rep Pap Test slide s. Follo wing imagi ng, the slide was revie wed by a Cytot echno logis t and/o r Patho logis t. End of Repor t Techn ical servi kiya provi ded by [facility], [address] [place] [address] Enzo Stevenson MD, Labor atory Direc tor. Case revie wed and diagn osis rende red at [facility], [facility], [address] [place] [address] Enzo Stevenson MD, Labor atory [facility]. CONFI DENTI AL Not Available [facility] ([facility]) [address], [place], [address], 01/23/2020 07:36:47 01/19/20 20 01/19/2020 urina lysis , dipst ick Blood trace Not Available [place] [address], [place], [address], 01/19/2020 12:54:20 01/19/20 20 01/19/2020 urina lysis , dipst ick Blood trace Not Available [place] [address], [place], [address], 01/19/2020 12:53:08 02/12/20 21 02/11/2021 CULTU RE: URINE result report SEE RESULT S BELOW Test: Cultu re: Urine Speci men Sourc e: Urine Voide d Speci men Type: Urine Speci men Date: 2020 12:14 PM Resul t Date: 2020 10:03 PM Resul t Statu s: Final resul t Abnor mal: No Resul ting Lab: [facility] [address] [facility] [address] Tel: CULTU RE ----- ----- ----- --- No growt h in 1 day (dete ction level of 10,00 0 colon ies / ml.) Not Available [facility] (Lab) [address] [facility], [place], [address], 02/12/2021 23:06:45 02/12/20 21 02/11/2021 IMAGE GUIDE D PAP AND HPV REGAR DLESS image guided Pap, HPV regardless of Pap result SEE RESULT S BELOW abnormal CASE REPOR T: Cytol ogy Gynec ologi tej Repor t Case: [id number] Autho norma rubio Provi juan jose: Rigoberto Francis MD Colle cted: 02/11 1215 Order ing Locat ion: [place] [facility] Recei mindy: 02/12 0114 First Scree n: Blaire manzanares, Jennifer Rescr een: Strut z, Willi am, CT Speci men: Scree vero Pap - Image d, Cervi x STATE MENT OF ADEQU ACY: Satis facto ry for evalu ation Trans forma tion zone compo nent canno t be defin itive ly ident ified due to the prese nce of atrop hy or other hormo nal capellan es FINAL DIAGN OSIS: Negat jason for Intra epith elial Lesio n or Malig annie (NIL) Atrop hic cell terri pop Elect jonn nelson apolinar d by Strjassi z, Mendoza am, CT on 2020 at 7:32 AM ----- ----- ----- ----- ----- ----- ----- ----- ----- ----- ----- ----- ----- ----- ----- ----- ----- ---- HPV RESUL TS: HPV mRNA E6/E7 : Posit jason - HPV mRNA Detec brittny HPV GENOT YPE 16 (KRISTI) : Not Detec brittny HPV GENOT YPE 18/45 (KRISTI) : Not Detec brittny NOTE: This high risk HPV mRNA assay detec ts fourt een high- risk HPV types (16, 18, 31, 33, 35, 39, 45, 51, 52, 56, 58, 59, 66, 68) witho ut diffe renti ation . This assay can diffe renti ate HPV 16 from HPV 18/45 , but does not diffe renti ate betwe en HPV 18 and HPV 45. A negat jason HPV 16, 18/45 genot ype assay resul t does not exclu de the possi bilit y of cytol ogic abnor malit ies or of futur e or under lying RUBY 1, RUBY 3 or cance r. CHART ABLE COMME NT: Note: This speci men was revie wed by a Cytot echno logis t and/o r Patho logis t (as indic ated in this repor t) after evalu ation using the Thinp rep Imagi ng Syste m. CLINI TEJ INFOR MATIO N: Menst rual Statu s: LMP (if appli cable ): Clini tej Histo ry/Pr eviou s Pap: Type of Neopl dena (if appli cable ): Other Histo ry: Hormo glenn (if appli cable ): PAP EDUCA HALIE L NOTE: The Pap Test is a scree vero test with an inher ent false negat jason rate. Liqui d-bas e sampl ing may decre ase, but will not elimi chely, false negat jason resul ts. A negat jason resul t does not precl ude the prese nce and/o r devel opmen t of disea se, since the prese nce of abnor mal cells in the sampl e depen ds on the locat ion of the lesio n and sampl ing techn ique. Yvon nued regul ar scree vero is the best metho d of cance r preve ntion . If repor brittny cytol ogic findi ng do not corre late with physi tej and/o r histo rical findi ngs, furth er inves tigat ion is recom eduardo d, as clini americo velasco nted. Not Available [facility] (Lab) [address], [place], [address], 02/13/2021 14:31:13 02/12/20 21 02/11/2021 urina lysis , dipst ick Blood +++ Not Available [place] [address], [place], [address], 02/11/2021 11:17:36 02/08/20 20 02/07/2020 DEXA No observ ation record ed. [facility] [address], [place], [address], 02/09/2020 17:14:54 Result Notes None recorded. 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 1 10:28:10 Menopaus e Active 2017 Asymptom at menopaus al state;Re corded Elsewher e: No Locat ion: [facility] S ource: EHR Towel Stretcher alicia: N Practi ce ID: 0001 Raudel lable Time: 11:15:00 AM Not Available [facility] 0 16:00:52 Asymptom at microsco pic hematuri a [id number] Completed 201702/11/2021 Asymptom at microsco pic hematuri a;Record ed Elsewher e: No Locat ion: [facility] S ource: EHR Towel Stretcher alicia: N Practi ce ID: 0001 Raudel lable Time: 11:15:00 AM Meenakshihector Castro [facility] 1 10:28:16 Abnormal cervical Papanico laou smear 229688803 Active 2014 Abnormal Pap smear of cervix;R ecorded Elsewher e: No Locat ion: [facility] S ource: EHR Towel Stretcher alicia: N Practi ce ID: 0001 Raudel lable Time: 03:00:00 PM Not Available [facility] 0 16:00:52 Evaluati on finding Completed 201702/11/2021 Hematuri a, unspecif ied;Gasper rded Elsewher e: No Locat ion: [facility] S ource: EHR Towel Stretcher alicia: N Practi ce ID: 0001 Raudel lable Time: 11:15:00 AM Meenakshi Castro [facility] 1 10:28:05 Atypical squamous cells of undeterm ined signific ance on vaginal Papanico laou smear 506049938 Active 2016 Atyp squam cell of undet signfc cyto smr vagn (ASC-US) ;Recorde d Elsewher e: No Locat ion: [facility] S ource: EHR Towel Stretcher alicia: N Annelise ce ID: 0001 Raudel lable Time: 11:14:57 AM Not Available [facility] 0 16:00:53 Speciali zed medical examinat ion Completed 201402/11/2021 Gynecolo gical Examinat ion;Gasper rded Elsewher e: No Locat ion: [facility] S ource: EHR Towel Stretcher alicia: N Rosalbati ce ID: 0001 Raudel lable Time: 03:00:00 PM [facility] Concept Completed 201602/11/2021 Encntr for general adult medical exam w/o abnormal findings ;Recorde d Elsewher e: No Locat ion: [facility] S ource: EHR Towel Stretcher alicia: N Annelise ce ID: 0001 Raudel lable Time: 11:15:00 AM [facility] 10:28:08 Problem Notes None recorded. Procedures Surgical History Date Name Laterality Status Provider Name and Address Organization Details Recorded Time 12/26/19 21 arthrodesis of interphalangeal joint of finger completed [facility] 02/19/2021 13:30:38 03/12/20 20 Date of Last Mammogram completed [facility] 02/11/2021 10:27:43 03/03/20 20 completed [facility] 02/11/2021 10:57:27 01/21/20 20 Most Recent Bone Density completed [facility] 02/11/2021 10:27:43 01/19/20 20 Date of Last Pap Smear completed [facility] 02/11/2021 10:27:43 04/17/20 17 completed [facility] 02/11/2021 10:27:43 04/17/20 17 Date of Last Colonoscopy completed [facility] 02/11/2021 10:27:43 Tubal Ligation completed [facility] 02/11/2021 10:27:55 Caesarean Section completed [facility] 02/11/2021 10:27:55 Total Hysterectomy completed [facility] 02/11/2021 10:27:55 Imaging Results Imaging Date Name Status LastModified by Organizatio n Details LastModified Time 02/07/2020 DEXA completed [address], [place], [address], 02/09/2020 17:14:54 Procedure Notes None recorded. Medical Equipment None Reported. Allergies No known drug allergies Medications Name Sig Start Date Stop Date Status Note LastModified by Organization Details LastModified Time ondansetr on odt 4 mg tbdp 01/18 completed Not Available Not Available Not Available metronida zole 500 mg tabs 01/18 completed Not Available Not Available Not Available levothyro xine sodium 75 mcg tabs active Not Available Not Available Not Available ciproflox acin hydrochlo ride 500 mg tabs 01/18 completed Not Available Not Available Not Available cyclobenz aprine 10 mg tablet TAKE 1 TABLET BY MOUTH THREE TIMES DAILY NEEDED FOR MUSCLE SPASM active Not Available Not Available No t Available hydrocodo ne 5 mg-acetam inophen 325 mg tablet TAKE 1 TABLET BY MOUTH EVERY 6 HOURS NEEDED FOR PAIN 02/11 completed Not Available Not Available Not Available meloxicam 15 mg tablet TAKE 1 TABLET BY MOUTH DAILY active Not Available Not Available No t Available levothyro xine 25 mcg tablet take 1 tablet by oral route every day 02/11 completed Prescribe d Elsewhere : Yes Locat ion: [facility] Mo dify By: elizabeth abraham DateTime: 5 03:00:00 PM Not Available Not Available Not Available levothyro xine 75 mcg tablet TAKE 1 TABLET BY MOUTH DAILY active Not Available Not Available No t Available benzonata te 100 mg capsule active Not Available Not Available Not Available hydroxych loroquine 200 mg tablet TAKE 1 TABLET BY MOUTH TWICE DAILY X 7 DAYS 02/11 completed Not Available Not Available Not Available Vitals Date Recorded Body weight Systolic blood pressure Diastolic blood pressure Provider Name and Address Organization Details Last Updated DateTime 02/11/2021 00647.4 g 153 mm[Hg] 92 mm[Hg] Meenakshi [facility] 02/11/2021 10:46:09 Date Recorded Body height Provider Name an d Address Organization Details Last Updated DateTime 02/17/2021 170.18 cm Meenakshi [facility] 02/19/2021 13:27:11 Date Recorded Body weight Systolic blood pressure Diastolic blood pressure Provider Name and Address Organization Details Last Updated DateTime 01/19/2020 16417.89 g 142 mm[Hg] 77 mm[Hg] Meenakshi [facility] 01/19/2020 11:09:56 Social History Question Answer Notes LastModified by Organizat ion Details LastModified Time Tobacco Smoking Status Never Smoker Meenakshi [facility] 02/11/2021 10:27:52 Do You Have An Advance Directive? Yes Information n ot available 02/11/2021 Are You Blind Or Do You Have Difficulty Seeing? No Information n ot available 02/11/2021 What Is Your Level Of Caffeine Consumption? Moderate Information not available 02/11/2021 In The 14 Days Before Symptom Onset, Have You Had Close Contact With A Laboratory-confirm ed COVID-19 While That Case Was Ill? No Information n ot available 02/11/2021 In The 14 Days Before Symptom Onset, Have You Had Close Contact With A Person Who Is Under Investigation For COVID-19 While That Person Was Ill? No Information not available 02/11/2021 Have You Been To An Area Known To Be High Risk For COVID-19? No Information not available 02/11/2021 Are You Deaf Or Do You Have Serious Difficulty Hearing? No Information not available 02/11/2021 What Type Of Diet Are You Following? REGULAR Information n ot available 02/11/2021 What Is The Highest Grade Or Level Of School You Have Completed Or The Highest Degree You Have Received? [id number] Information not available 02/11/2021 Are There Any Guns Present In Your Home? No Information not available 02/11/2021 Do You Use Protection During Sex? No Information not available 02/11/2021 Do You Use Your Seat Belt Or Car Seat Routinely? Yes Information not available 02/11/2021 Do You Have Smoke And Carbon Monoxide Detectors In Your Home? Yes Information not available 02/11/2021 How Much Tobacco Do You Smoke? No Information not available 02/11/2021 Do You Use Sunscreen Routinely? Yes Information not available 02/11/2021 Have You Used IV Drugs? No Information not available 02/11/2021 Sex: Unknown Functional Status Question Answer Note LastModified by Organizat ion Details LastModified Time Do you use any illicit or recreational drugs? No Information not available 02/11/2021 What is your level of alcohol consumption? None Information not available 02/11/2021 Are you able to walk? YESWOREST Information not available 02/11/2021 What is your occupation? Retired Information not available 02/11/2021 What is your exercise level? Occasional Information not available 02/11/2021 Mental Status Question Answer Note LastModified by Organization D etails LastModified Time Do you feel stressed (tense, restless, nervous, or anxious, or unable to sleep at night)? [id number] Information not available 02/11/2021 Family History Relationship Description Onset Age of this Age Resolved Age Notes LastModified by Organization Details LastModified Time Maternal Aunt Diabetes mellitus Not available 2020 10:27:40 Paternal Grandfather Hypertensive disorder Not available 2020 10:27:40 Maternal Grandmother Heart disease Not available 2020 10:27:40 Father Hypertensive disorder Not available 2020 10:27:40 Father Heart disease Not available 2020 10:27:40 Mother Heart disease Not available 2020 10:27:40 Mother Diabetes mellitus Not available 2020 10:27:40 Maternal Grandfather Diabetes mellitus Not available 2020 10:27:40 Paternal Uncle Diabetes mellitus Not available 2020 10:27:40 Medical History Condition Response Heart Problems Y Other Y Arthritis Y History of abnormal pap Y Thyroid Problems Y Gynecological History Statement/Question Response Abnormal Pap Yes Date of Last Mammogram 03/12/2020 Date of LMP 03/03/1994 N On BCP's at Conception? N STIs/STDs N Was last menstrual period normal N HPV Vaccine N Colposcopy Current Control Method Hysterectom y 03/03/2020 Age at First Child 26 If Post Menopausal, Age at Menopause 56 Date of Last Colonoscopy 04/17/2017 Most Recent Bone Density 01/21/2020 Sexually Active? Y Age of first menstrual cycle 15 Date of Last Pap Smear 01/19/2020 Sexual Problems? N LMP Unknown 04/17/2017 N Obstetrics History GPAL:G 2 P 0 0 0 2 Type Value Living 2 Total 2 Past Encounters Encounter ID Performer Location Encounter Start Date Encounter Closed Date Diagnosis/Indication Diagnosis SNOMED-CT Code Diagnosis ICD10 Code Diagnosis Note [id number] Jese Francis MD [place] [address] [address] 01/19/2020 10:58:08 01/19/2020 13:33:31 Gynecologic examination 07297684 Z01.419 This patient is here for her annual exam. A thorough history was taken. A physical exam was performed. Age appropriat e routine health screening was ordered, performed, and discussed. Recommende d testing was ordered. She was asked to follow up in one year. She will be informed of any test results. Mammogram -done Colonoscop y -none Bone Density -ordered Cholestero l -done Pap - today [id number] Jese Francis MD [place] [address] [address] 02/11/2021 10:19:20 02/11/2021 11:14:27 Gynecologic examination 52657473 Z01.419 This patient is here for her annual exam. A thorough history was taken. A physical exam was performed. Age appropriat e routine health screening was ordered, performed, and discussed. Recommende d testing was ordered. She was asked to follow up in one year. She will be informed of any test results. Mammogram - [Done ] Colonoscop y - [done] Bone Density - [ done ] Cholestero l - [ done] Pap - today Health Concerns Section Related Observation LastModified by Organization Detai ls LastModified Time None Recorded Concern Status LastModified by Organization Details LastModified Time None Recorded Advance Directives Directive Y: Payers Encounter Date Sequence Insurance Name Policy Number Policy Pandya Covered Member ID Pandya Member ID Guarantor Name 02/11/2021 1 [facility] (MEDICARE REPLACEMENT/A DVANTAGE - PPO) [id number] Aidee Thompson [id number] Aidee Thompson Notes Date Note Type Note Provider Name and Address Organization Details Recorded Time 01/19/2020 text/html Annual GYNReport ed bypatient.History: no gynecologic complaints; no change in interval history Urinary symptoms:No hematuria; No incontinence Vulva:No genital lesion Vagina:Normal vaginal discharge Breast:No breast pain; No breast lump; No nipple discharge Sexual complaints:No sexual complaints; No pain during intercourse; Normal libido Menopausal Symptoms:No menopausal symptoms; Normal vaginal lubrication Psychological symptoms:No depression; No anxiety Preventive measures:Encourage self breast examination; Encourage regular exercise; Up to date on colonoscopy screening Jese Francis MD [address], [place], [address], [facility] 01/19/2020 13:27:20 02/11/2021 text/html Annual GYNReport ed bypatient.History: no gynecologic complaints Urinary symptoms:No hematuria; No incontinence Vulva:No genital lesion Vagina:Normal vaginal discharge Breast:No breast pain; No breast lump; No nipple discharge Sexual complaints:No sexual complaints; No pain during intercourse; Normal libido Menopausal Symptoms:No menopausal symptoms Psychological symptoms:No depression; No anxiety Preventive measures:Encourage self breast examination; Encourage regular exercise Jese Francis MD [address], [place], [address], [facility] 02/11/2021 11:13:46 OBGyn Episode Ob Episode Information Episode Created Date Number of Fetuses Patient Bloodtype Patient rh Status Prepregnancy Weight lbs Domestic Partner Domestic Partner Phone Father Name Signal Maintainer Status 02/12/20 21 1 CLOSED Fetus Data First Name Last Name Admitted to NICU Weight (g) Sex Living Outcome Pediatric Complications Fetus ID Race Codes Race Delivery Type 2806.37 [id number] M [id number] Primary Milton Calculation Initial Milton Date Initial Exam Date Initial Exam Provider Initial Ultrasound Date Last Menstrual Period Date Ultra Sound Weeks Gestation 0 Eighteen To Twenty Week Milton Update Ultra Sound Date Fundal Height At Umbil Quickening Date Ultra Sound Latest Weeks Gestation Final Milton Confirmed By Final Milton Confirmed Date Final Milton Date Ultra Sound Latest Days Gestation 0 0 Menstrual History Last Menstrual Date Menses Monthly On Bcp Conception Prior Menses Frequency Hcg Plus Date Menarche Onset Age Delivery Information Delivery Date Delivery Type Labor Anesthesia Weeks Gestation Incision Type Labor Labor Length Hrs Delivered By Post Complications Tubal Sterilization Discharge Date Comments 1 36 Discharge Information Feeding Method Contraceptive Method Maternal HG B and HCT Levels Ob Episode Information Episode Created Date Number of Fetuses Patient Bloodtype Patient rh Status Prepregnancy Weight lbs Domestic Partner Domestic Partner Phone Father Name Signal Maintainer Status 02/12/20 21 1 CLOSED Fetus Data First Name Last Name Admitted to NICU Weight (g) Sex Living Outcome Pediatric Complications Fetus ID Race Codes Race Delivery Type 3033.16 [id number] M [id number] Repeat Milton Calculation Initial Milton Date Initial Exam Date Initial Exam Provider Initial Ultrasound Date Last Menstrual Period Date Ultra Sound Weeks Gestation 0 Eighteen To Twenty Week Milton Update Ultra Sound Date Fundal Height At Umbil Quickening Date Ultra Sound Latest Weeks Gestation Final Milton Confirmed By Final Milton Confirmed Date Final Milton Date Ultra Sound Latest Days Gestation 0 0 Menstrual History Last Menstrual Date Menses Monthly On Bcp Conception Prior Menses Frequency Hcg Plus Date Menarche Onset Age Delivery Information Delivery Date Delivery Type Labor Anesthesia Weeks Gestation Incision Type Labor Labor Length Hrs Delivered By Post Complications Tubal Sterilization Discharge Date Comments 9 36 Discharge Information Feeding Method Contraceptive Method Maternal HG B and HCT Levels
--- OUTSIDE RECORDS SUMMARY | 2024-12-22 14:17 | XMS_ITS | Clinical Summary ---
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 [...] Caballero Heart attack Mother Michelle Caballero Fatal [place], age 51 Heart disease Mother Michelle Caballero [...] on file Legal Sex Female 2:09 AM MANAGER MANAGING Gender Identity Not on file Sexual Orientation Straight 05/06/2020 7: 28 PM CDT Obstetrics History Para Term AB IAB SAB Ectopic Multiple Livin g Live Births 2 Date Outcome GA Total Labor Labor/2nd/3rd Weight Sex Type Anes PTL Marcie A1 A5 Name Clin Last Filed Vital Signs Vital Sign Reading Time Taken Comments Blood Pressure 114/62 07/20/2024 3:07 PM MANAGER MANAGING Pulse 78 07/20/2024 3:07 PM MANAGER MANAGING Temperature 37.4 C (99.4 F) 04/18/2022 11:22 AM CDT Respiratory Rate 18 04/18/2022 11:22 AM CDT Oxygen Saturation 99% 07/20/2024 3:07 PM MANAGER MANAGING Inhaled Oxygen Concentration - - Weight 67.6 kg (149 lb) 07/20/2024 3:07 PM MANAGER MANAGING Height 170.2 cm (5' 7 ) 07/20/2024 3:07 PM MANAGER MANAGING Body Mass Index 23.34 07/20/2024 3:07 PM MANAGER MANAGING Plan of Treatment Health Maintenance Due Date [...] history exists Medical Devices Implanted Type Area Environmental Service Aide Device Identifier Shelf Expiration Date Model / Serial / Lot [employer] [id number] Wire Fixation Christian L100mm Od1.1mm Nonsterile - [id number] Implanted:Qty: 2 on 12/25/2020 by Pet, Jovanny Goel MD at [facility] [employer] [id number] / / Explanted Type Area Environmental Service Aide Device Identifier Shelf Expiration Date Model / Serial / Lot [employer] [id number] Wire Fixation Christian L100mm Od1.1mm Nonsterile - [id number] Explanted:Qty: 1 on 12/25/2020 at [facility] [employer] [id number] / / Procedures Procedure Name Priority Date/Time [...] compared to prior imaging studies performed at [facility] on 05/08/2021, 05/14/2022 and 06/01/2023. There are [...] compared to prior imaging studies performed at [facility] on 05/08/2021, 05/14/2022 and 06/01/2023. There are [...] HEALTH MEDICARE [facility] Care Teams Hog Counter Relationship Specialty Start Date End Date Constantine Hall MD PCP - General 01/28/17 Constantine Hall MD 01/28/17 Jese Francis MD [facility] [place] [address] Referring Physician Obstetrics and Gynecology 03/08/21
== END 2024-12-22 14:12 | disposition home or self-care (01) ==
LOC: ANHIMG 14:15
PROVIDERS: PCP Family Medicine; Visit Provider Physician Assistant Medical
DX: M85.88 Other specified disorders of bone density and structure, other site (principal); Z78.0 Asymptomatic menopausal state; Z13.820 Encounter for screening for osteoporosis
CPT/HCPCS: 77080

== ENCOUNTER 2025-05-10 12:56 | Outpatient (CLI) | payer MEDICARE, SELFPAY ==
--- NOTE | ~2025-05-10 | MR_ITS ---
EXAMINATION: MR lumbar spine wo con DATE: 05/10/2025 13:31 INDICATION: Lumbago. Sciatica. TECHNIQUE: Magnetic resonance imaging (MRI) of the lumbar spine was performed without intravenous contrast. Sequences included sagittal T2-weighted FSE, sagittal T2-weighted FS FSE, sagittal T1-weighted FSE, and axial T2-weighted FSE. COMPARISON: Lumbar spine radiographs 11/14/2024 FINDINGS: There is 8 degrees dextrocurvature of thoracolumbar spine. There is 7 mm anterolisthesis of L3 on L4. There is a chronic compression fracture of L3. There is moderately decreased disc height at L2-L3, mildly decreased disc height at L3-L4, and severely decreased disc height at L4-L5 and L5-S1. The distal spinal cord signal intensity is normal. The conus medullaris is at L1. The following disc levels are specifically discussed: L1-L2: The disc is bulging. There is severe bilateral facet joint osteoarthritis. There is mild bilateral neural foraminal stenosis. There is mild central canal stenosis. L2-L3: The disc is bulging and has an annular fissure. There is severe bilateral facet joint osteoarthritis. There is mild bilateral neural foraminal stenosis. There is mild central canal stenosis. L3-L4: The disc is bulging and has an annular fissure. There is severe bilateral facet joint osteoarthritis. There is mild bilateral neural foraminal stenosis. There is moderate central canal stenosis. L4-L5: The disc is bulging and has an annular fissure. There is severe bilateral facet joint osteoarthritis. There is moderate bilateral neural foraminal stenosis. There is mild central canal stenosis. There is posterior decompression. L5-S1: The disc is bulging and has an annular fissure. There is severe bilateral facet joint osteoarthritis. There is mild bilateral neural foraminal stenosis. There is mild central canal stenosis. There is posterior decompression. IMPRESSION: 1. Severe lumbar spondylosis. Reviewed, dictated and finalized at location E.
== END 2025-05-10 12:57 | disposition home or self-care (01) ==
PROVIDERS: PCP Family Medicine; Visit Provider Physician Assistant Medical
DX: M47.816 Spondylosis without myelopathy or radiculopathy, lumbar region (principal); M54.40 Lumbago with sciatica, unspecified side; M25.551 Pain in right hip; G89.29 Other chronic pain
CPT/HCPCS: 72148

== ENCOUNTER 2025-05-29 09:12 | Day surgery (SDC) | payer MEDICARE, SELFPAY ==
[2025-05-09 10:00] VITALS: BMI 23.5
--- NOTE | ~2025-05-29 | XR_ITS ---
EXAMINATION: XR fluoroscopy no charge DATE: 05/29/2025 11:35 INDICATION: Bilateral sacroiliac joint steroid injections TECHNIQUE: 10 fluoroscopic images of the bilateral sacroiliac joints were obtained during procedure performed by Dr. Mar. Radiologist was not present for the imaging or procedure. The amount of fluoroscopy time used during this procedure was 1.4 minutes. Cumulative radiation dose of 21.91 mGy. COMPARISON: None. FINDINGS: Images demonstrate needles advanced into the bilateral sacroiliac joints with contrast injection opacifying the sacroiliac joint spaces. IMPRESSION: 1. S/P less during bilateral sacroiliac joint injections. See procedure note for further detail. Reviewed, dictated and finalized at location A. IMPRESSION: 1. S/P less during bilateral sacroiliac joint injections. See procedure note fo r further detail.
[2025-05-29 10:00] VITALS: BP 133/65; PULSE 69; RESP 15; TEMP 36.6; O2SAT 99
--- OUTSIDE RECORDS SUMMARY | 2025-05-29 10:13 | XMS_ITS | Data Portability ---
Author Organization 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 Procedures None recorded. Surgeries None recorded. Imaging None recorded. Medication Orders None recorded. Patient TargetsNo targets recorded. Patient InstructionsNo instructions recorded. Reason for Referral None Reported. Results Created Date Observation Date Name Description Value Unit Range Abnormal Flag Note LastModifiedBy Organization Detail LastModifiedTime 01/19/20 20 01/21/2020 cultu re, urine specimen source Urine - Void Not Available [facility] ([facility]) [address], [place], [address], 01/21/2020 01:39:34 01/19/20 20 01/21/2020 cultu re, urine culture, urine See Below No growt h Not Available [facility]) [address], [place], [address], 01/21/2020 01:39:34 01/19/20 20 01/23/2020 pap, LB [...] activ e compu ter syste m which sridhar ts the lab in the scree vero of ThinP rep Pap Test slide s. Follo wing imagi ng, the slide was revie wed by a Cytot echno logis t and/o r Patho logis t. End of Repor t Techn ical servi kiya provi ded by [facility], [facility], d/b/a [facility], [address] [place] [address] Enzo Stevenson MD, Labor atory Direc tor. Case revie wed and diagn osis rende red at [facility], d/b/a [facility], [address] , [place] [address] Enzo Stevenson MD, [facility] tor. CONFI DENTI AL Not Available [facility]) [address], [place], [address], 01/23/2020 07:36:47 01/19/20 20 01/19/2020 urina lysis , dipst ick Blood trace Not Available [facility] [address], [place], [address], 01/19/2020 12:54:20 01/19/20 20 01/19/2020 urina lysis , dipst ick Blood trace Not Available [facility] [address], [place], [address], 01/19/2020 12:53:08 02/12/20 21 02/11/2021 CULTU RE: URINE result report SEE RESULT S BELOW Test: Cultu re: Urine Speci men Sourc e: Urine Voide d Speci men Type: Urine Speci men Date: 2020 12:14 PM Resul t Date: 2020 10:03 PM Resul t Statu s: Final resul t Abnor mal: No Resul ting Lab: [facility] [address] [facility] [address] Tel: CULTU RE ----- ----- ----- --- No growt h in 1 day (dete ction level of 10,00 0 colon ies / ml.) Not Available [facility] (Lab) [address] [facility], [place], [address], 02/12/2021 23:06:45 02/12/20 21 02/11/2021 IMAGE GUIDE D PAP AND HPV REGAR DLESS image guided Pap, HPV regardless of Pap result SEE RESULT S BELOW abnormal CASE REPOR T: Cytol ogy Gynec ologi tej Repor t Case: [id number] Autho silviokiko rubio Provi juan jose: Rigoberto Francis MD Colle cted: 02/11 1215 Order ing Locat ion: [place] [facility] Recei mindy: 02/12 0114 First Scree n: Blaire an, Jennifer Rescr een: Gurvinder wahl, [place], CT Speci men: Carmel vero Pap - Image d, Cervi x [...] Malig annie (NIL) Atrop hic cell terri rn Elect jonn nelson apolinar d by Gurvinder wahl, [place], CT on 2020 at 7:32 AM ----- [...] as clini americo velasco nted. Not Available [facility] (Lab) [address], [place], [address], 02/13/2021 14:31:13 02/12/20 21 02/11/2021 urina lysis , dipst ick Blood +++ Not Available [facility] [address], [place], [address], 02/11/2021 11:17:36 02/08/20 20 02/07/2020 DEXA No observ ation record ed. SV[facility] [address], [place], [address], 02/09/2020 17:14:54 Result Notes None recorded. Problems Name Problem SNOMED Code Status Onset Date Resolution Date Notes Provider Name and Address Organization Details Recorded Time Abnormal cervical Papanico laou smear 650368691 Active 2014 Abnormal Pap smear of cervix;R ecorded Elsewher e: No Locat ion: [facility] S ource: EHR Range Examiner alicia: N Rosalbati ce ID: 0001 Raudel lable Time: 03:00:00 PM Not Available [facility] 0 16:00:52 Speciali zed medical examinat ion Completed 201402/11/2021 Gynecolo gical Examinat ion;Gasper rded Elsewher e: No Locat ion: [facility] S ource: EHR Range Examiner alicia: N Rosalbati ce ID: 0001 Raudel lable Time: 03:00:00 PM Meenakshi [facility] 1 10:28:[address] Concept Completed 201602/11/2021 Encntr for general adult medical exam w/o abnormal findings ;Recorde d Elsewher e: No Locat ion: [facility] S ource: EHR Range Examiner alicia: N Rosalbati ce ID: 0001 Raudel lable Time: 11:15:00 AM Meenakshi Castro [facility] 1 10:28:08 Atypical squamous cells of undeterm ined signific ance on vaginal Papanico laou smear 456161530 Active 2016 Atyp squam cell of undet signfc cyto smr vagn (ASC-US) ;Recorde d Elsewher e: No Locat ion: [facility] S ource: EHR Range Examiner alicia: N Rosalbati ce ID: 0001 Raudel lable Time: 11:14:57 AM Not Available [facility] 0 16:00:53 Menopaus e Active 2017 Asymptom atic menopaus al state;Re corded Elsewher e: No Locat ion: [facility] S ource: EHR Range Examiner alicia: N Practi ce ID: 0001 Raudel lable Time: 11:15:00 AM Not Available [facility] 0 16:00:52 Asymptom at microsco pic hematuri a [id number] Completed 201702/11/2021 [facility];Record ed Elsewher e: No Locat ion: [facility] S ource: EHR Range Examiner alicia: N Rosalbati ce ID: 0001 Raudel lable Time: 11:15:00 AM [facility] 1 10:28:16 Evaluati on finding Completed 201702/11/2021 Hematuri a, unspecif ied;Gasper rded Elsewher e: No Locat ion: [facility] S ource: EHR Range Examiner alicia: N Annelise ce ID: 0001 Raudel lable Time: 11:15:00 AM Meenakshi barrios [facility] 1 10:28:[address] Concept Completed 201802/11/2021 Encntr for carpenter railcar exam (general ) (routine ) w/o abn findings ;Practic e ID: 0001 [facility] 10:28:10 Problem Notes None recorded. Procedures Surgical History Date Name Laterality Status Provider Name and Address Organization Details Recorded Time 12/26/19 21 arthrodesis of interphalangeal joint of finger completed [facility] 02/19/2021 13:30:38 03/12/20 20 Date of Last Mammogram completed [facility] 02/11/2021 10:27:43 03/03/20 20 completed [facility] 02/11/2021 10:57:27 01/21/20 20 Most Recent Bone Density completed [facility] 02/11/2021 10:27:43 01/19/20 20 Date of Last Pap Smear completed [facility] 02/11/2021 10:27:43 04/17/20 17 completed [facility] 02/11/2021 10:27:43 04/17/20 17 Date of Last Colonoscopy completed [facility] 02/11/2021 10:27:43 Tubal Ligation completed [facility] 02/11/2021 10:27:55 Caesarean Section completed [facility] 02/11/2021 10:27:55 Total Hysterectomy completed [facility] 02/11/2021 10:27:55 Imaging Results None recorded. Procedure Notes None recorded. Medical Equipment None [...] Prescribe d Elsewhere : Yes Locat ion: [facility] Mo dify By: elizabeth abraham [...] Available Vitals Date Recorded Body weight Systolic And Diastolic Provider Name and Address Organization Details Last Updated DateTime 01/19/2020 86256.89 g 142/77 mm[Hg] Meenakshi Castro [facility] 01/19/2020 11:09:56 Date Recorded Body weight Systolic And Diastolic Provider Name and Address Organization Details Last Updated DateTime 02/11/2021 29525.4 g 153/92 mm[Hg] Meenakshi [facility] 02/11/2021 10:46:09 Date Recorded Body height Provider Name an d Address Organization Details Last Updated DateTime 02/17/2021 170[address] [facility] 02/19/2021 13:27:11 Social History Question Answer Notes LastModified by Organizat ion Details LastModified Time Tobacco Smoking Status Never Smoker Meenakshi Castro [facility] 02/11/2021 10:27:52 Do You Have An [...] Or The Highest Degree You Have Received? [id number] Information not available 02/11/2021 Are There Any [...] not available 02/11/2021 Are you able to walk independently without assistance or assistive devices? YESWOREST Information not available 02/11/2021 What is your occupation? Retired Information not available 02/11/2021 What is your exercise level? Occasional Information not available 02/11/2021 Mental Status Question Answer Note LastModified by Organization D etails LastModified Time Do you feel stressed (tense, restless, nervous, or anxious, or unable to sleep at night)? [id number] Information not available 02/11/2021 Family History Relationship Description Onset Age of this Age Resolved Age Notes LastModified by Organization Details LastModified Time Maternal Aunt Diabetes mellitus Not available 2020 10:27:40 Paternal Grandfather Hypertensive disorder Not available 2020 10:27:40 Maternal Grandmother Heart disease Not available 2020 10:27:40 Father Hypertensive disorder Not available 2020 10:27:40 Father Heart disease [email or web address] Not available 2020 10:27:40 Mother Heart disease [email or web address] Not available 2020 10:27:40 Mother Diabetes mellitus [email or web address] Not available 2020 10:27:40 Maternal Grandfather Diabetes mellitus [email or web address] Not available 2020 10:27:40 Paternal Uncle Diabetes mellitus [email or web address] Not available 2020 10:27:40 Medical History Condition Response Heart Problems Y Other Y History of abnormal pap Y Arthritis Y Thyroid Problems Y Gynecological History Statement/Question [...] Diagnosis SNOMED-CT Code Diagnosis ICD10 Code Diagnosis IMO Codes Diagnosis Note [id number] Jese Francis MD [facility] [address] [address] 01/19/2020 10:58:08 01/19/2020 13:33:31 Gynecologic examination 16443348 Z01.419 This patient is here for her [...] -ordered Cholestero l -done Pap - today [id number] Jese Francis MD [facility] [address] [address] 02/11/2021 10:19:20 02/11/2021 11:14:27 Gynecologic examination [id number] Z01.419 This patient is here for her [...] None Recorded Advance Directives Directive Y: Payers Insurance Date Sequence Insurance Name Policy Number Policy Pandya Covered Member ID Pandya Member ID Guarantor Name 02/11/2021 1 [facility] (MEDICARE REPLACEMENT/A DVANTAGE - PPO) [id number] Aidee Thompson [id number] Aidee Thompson Notes Date Note Type Note Provider Name and Address Organization Details Recorded Time 01/19/20 20 text/htm l Annual GYNReported by PatientHistoryFor history, patient reportsno gynecologic complaintsandno change in interval history.Genitourinary symptomsFor urinary symptoms, patient reportsno hematuriaandno incontinence. For vulva, patient reportsno genital lesion. For vagina, patient reportsnormal vaginal discharge.Breast symptomsFor breast, patient reportsno breast pain,no breast lump, andno nipple discharge.Endocrine symptomsFor sexual complaints, patient reportsno sexual complaints,no pain during intercourse, andnormal libido. For menopausal symptoms, patient reportsno menopausal symptomsandnormal vaginal lubrication.Psychological symptomsFor psychological symptoms, patient reportsno depressionandno anxiety.Preventative measuresFor preventive measures, patient reportsencourage self breast examination,encourage regular exercise, andup to date on colonoscopy screening. Jese Francis MD [address], [place], [address], [facility] 01/19/2020 13:27:20 02/12/20 21 text/htm l Annual GYNReported by PatientHistoryFor history, patient reportsno gynecologic complaints.Genitourinary symptomsFor urinary symptoms, patient reportsno hematuriaandno incontinence. For vulva, patient reportsno genital lesion. For vagina, patient reportsnormal vaginal discharge.Breast symptomsFor breast, patient reportsno breast pain,no breast lump, andno nipple discharge.Endocrine symptomsFor sexual complaints, patient reportsno sexual complaints,no pain during intercourse, andnormal libido. For menopausal symptoms, patient reportsno menopausal symptoms.Psychological symptomsFor psychological symptoms, patient reportsno depressionandno anxiety.Preventative measuresFor preventive measures, patient reportsencourage self breast examinationandencourage regular exercise. Jese Francis MD [address], [place], [address], [facility] 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
--- OUTSIDE RECORDS SUMMARY | 2025-05-29 10:13 | XMS_ITS | Clinical Summary ---
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 Name Role Phone Constantine Hall MD Primary Care Provider [phone] Constantine Hall MD Unavailable [phone] Jese Francis MD Unavailable [phone] Allergies No known active allergies Medications [...] (11/29/2020): Added automatically from request for surgery [id number] History of COVID-19 11/12/2020 Polyarticular osteoarthritis 10/02/2020 [...] Caballero Heart attack Mother Michelle Caballero Fatal [place], age 51 Heart disease Mother Michelle Caballero Dementia Sister 1 Swapna Rivera Memory loss Sister 1 Swapna Rivera Memory loss Sister 2 Michelle Mendoza Relation Name Status Comments Brother 1 Catarino Caballero (Age 69) Brother 2 (Age 72) Brother 3 Oh Caballero Father Royce Caballero (Age 89) Father's Brother Faustino Caballero Maternal Grandfather Catarino pSring Mother Michelle Caballero (Age 51) Sister 1 [...] on file 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 Gender Identity Not on file Sexual Orientation Straight 05/06/2020 7: 28 PM CDT Obstetrics History Para Term AB IAB SAB Ectopic Multiple Livin g Live Births 2 Date Outcome GA Total Labor Labor/2nd/3rd Weight Sex Type Anes PTL Marcie A1 A5 Name Clin Last Filed Vital Signs Vital Sign Reading Time Taken Comments Blood Pressure 110/50 01/27/2025 8:41 AM CDT Pulse 80 01/27/2025 8:41 AM CDT Temperature 37.4 C (99.4 F) 04/18/2022 11:22 AM CDT Respiratory Rate 18 04/18/2022 11:22 AM CDT Oxygen Saturation 96% 01/27/2025 8:41 AM CDT Inhaled Oxygen Concentration - - Weight 66.2 kg (146 lb) 01/27/2025 8:41 AM CDT Height 170.2 cm (5' 7) 01/27/2025 8:41 AM CDT Body Mass Index 22.87 01/27/2025 8:41 AM CDT Plan of Treatment Health Maintenance Due Date [...] Tdap) 08/03/2022 08/03/2012 Covid-19 Vaccine (2 - 2024-2 6 season) 2025 08/07/2021 Influenza Vaccine (#1) 2025 , 05/20/2019, 04/08/2018, Additional history exists Breast Cancer Screening-Mammogram Discontinued 06/01/2024, 06/01/2023, 05/14/2022, Additional history exists Medical Devices Implanted Type Area Flow Specialist Device Identifier Shelf Expiration Date Model / Serial / Lot [employer] [id number] Wire Fixation Christian L100mm Od1.1mm Nonsterile - [id number] Implanted:Qty: 2 on 12/25/2020 by Pet, Jovanny Goel MD at [facility] [employer] [id number] / / Explanted Type Area Flow Specialist Device Identifier Shelf Expiration Date Model / Serial / Lot [employer] [id number] Wire Fixation Christian L100mm Od1.1mm Nonsterile - [id number] Explanted:Qty: 1 on 12/25/2020 at [facility] [employer] [id number] / / Procedures Procedure Name Priority Date/Time [...] compared to prior imaging studies performed at [facility] on 05/08/2021, 05/14/2022 and 06/01/2023. There [...] compared to prior imaging studies performed at [facility] on 05/08/2021, 05/14/2022 and 06/01/2023. There [...] Relevant to Health Maintenance Insurance [employer] MEDICARE [facility] MEDICARE [facility] MEDICARE Care Teams Welcome Wagon Hostess Relationship Specialty Start Date End Date Constantine Hall MD PCP - General 01/28/17 Constantine Hall MD 01/28/17 Jese Francis MD [facility] [place] [address] Referring Physician Obstetrics and Gynecology 03/08/21
--- OUTSIDE RECORDS SUMMARY | 2025-05-29 10:13 | XMS_ITS | Clinical Summary ---
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 Name Role Phone Unavailable Primary Care Provider [...] 1-dose 75+ series) 2022 Influenza Immunization (#1) 04/03/202503/04, 04/28/2020, 05/20/2019, Additional history exists SARS-COV-2 Immunization ( season) 2025 08/07/2021, 10/18/2020, 09/25/2020 DTaP/Tdap/Td Immunization Discontinued 08/03/2012 TdaP Immunization Completed 08/03/2012 Zoster Immunization Completed 07/01/2020, 0 Hepatitis B Immunization Aged Out No longer eligible based on patient's age to complete this topic Human Papillomavirus (HPV) Immunization Aged Out No longer eligible based on patient's age to complete this topic Meningococcal Immunization (ACWY) Aged Out No longer eligible based on patient's age to complete this topic Rotavirus Immunization Aged Out No lo nger eligible based on patient's age to complete this topic
--- NOTE | 2025-05-29 10:43 | PM.HPGS ---
History of Present Illness History of Present Illness Consent: Risks, benefits, and alternatives have been discussed and questions answered. Patient agrees to proceed with procedure. 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 Denies fevers chills night sweats or signs infection. Denies any new neurologic deficits including bowel or bladder dysfunction or focal numbness/weakness. Review of Systems Review of Systems: All systems reviewed & are unremarkable except as noted in HPI and below PMFSH Past Medical History Medical History (Updated 05/29/25 @ 10:44 by Fredy Mar MD) Lumbar spondylosis Dorsalgia Sacroiliitis Abnormal ankle brachial index (VINICIO) left leg VINICIO 0.48 Patella-femoral syndrome Atypical meningioma of brain Chest wall contusion Contusion of face Aftercare following left finger joint replacement surgery Decreased platelet count BMI 28.0-28.9,adult BMI 27.0-27.9,adult Hypothyroidism Surgical History Surgical History History of hysterectomy History of cholecystectomy Family History Family History Father Hypertension Grandparent Cerebrovascular accident Diabetes mellitus Sibling Family history of Parkinson's disease Liver cancer Mother Family history of diabetes mellitus in first degree relative Diabetes mellitus Sibling Mental disorder Other Family history of cardiovascular disease Social History Social History (Updated 04/20/25 @ 09:51 by Ruby Burton MA) Social History: Aidee is very confident filling out medical forms. In the last 12 months she has not received assistance from an organization or program. 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 Gender identity (if verbalized by the patient): Female Spiritual care concerns: No Meds Home Medications and Allergies Home Medications ?Medication ?Instructions ?Recorded ?Confirmed ?Type clobetasol 0.05 % scalp solution 1 applic topical DAILY 11/29/21 05/29/25 History spironolactone 100 mg tablet 100 mg PO DAILY 11/29/21 05/29/25 History calcium carbonate 600 mg PO DAILY 03/18/22 05/29/25 History mxnepuij-syr-qtobt ac 400 1 tablet PO .qd 03/18/22 05/29/25 History mcg-calcium carb 500 mg-vit K1 20 mcg tablet (Women's 50 Plus Multivitamin) saw palmetto 450 mg capsule 900 mg PO DAILY 03/18/22 05/29/25 History finasteride 5 mg tablet 5 mg PO DAILY 11/08/24 05/29/25 History biotin 10,000 mcg disintegrating 10,000 mcg PO DAILY 04/20/25 05/29/25 History tablet levothyroxine 50 mcg tablet 50 mcg PO DAILY #90 tabs 05/01/25 05/29/25 Rx Allergies Allergy/AdvReac Type Severity Reaction Status Date / Time No Known Allergies Allergy Unknown Verified 05/29/25 09:59 Vital Signs Vital Signs - 24 hr 05/29/25 10:00 Temperature 98 F Pulse Rate 69 Respiratory Rate 15 Blood Pressure 133/65 Pulse Oximetry 99 Oxygen Delivery Room Air Exam Narrative: The patient's physical exam is essentially unchanged from prior examination on 04/20/2025. Specifically, patient demonstrates normal lung capacity, tidal volume and respiratory rate without wheezes, crackles, rales or rubs. Heart rate and rhythm are regular without murmurs, gallops or rubs. No JVD. Pulses 2+ globally without increasing peripheral edema. AAOx3 with no evidence of confusion, intoxication or altered mental state, NC/AT without acute distress or altered consciousness. Speech, cognition, mood, insight and judgment at baseline and within normal limits. Assessment and Plan Assessment and plan (1) Dorsalgia: Code(s): M54.9 - Dorsalgia, unspecified Status: Acute (2) Sacroiliitis: Code(s): M46.1 - Sacroiliitis, not elsewhere classified Status: Acute Assessment and Plan: Proceed as planned with therapeutic intra-articular steroid injection of the bilateral SI joints under fluoroscopic guidance with contrast control (3) Arthropathy of sacroiliac joint: Code(s): M47.818 - Spondylosis without myelopathy or radiculopathy, sacral and sacrococcygeal region Status: Acute
--- NOTE | 2025-05-29 10:45 | WPDHPUPDATE1 ---
History and Physical Update Update Date/Time: 05/29/25 10:45 History and Physical has been reviewed, including an updated exam of the patient. There are NO changes in the patient's condition. Risks, benefits, and alternatives have been discussed and questions answered. Patient agrees to proceed with procedure.
--- NOTE | 2025-05-29 10:46 | P.OP_ITS ---
Procedure Note - Detailed Date of Procedure 05/29/25 Pre-op Diagnosis Sacroiliitis Post-op Diagnosis Same Procedure Performed Bilateral Sacroiliac Joint Steroid Injection under Fluoroscopic Guidance and with Contrast Control. Surgeon Fredy Mar MD Accredited Pharmacy Technician None Anesthesia Local Description of Procedure INFORMED CONSENT: Risks, benefits and alternatives to the procedure were discussed in detail with the patient who expressed explicit understanding and consent to proceed. Patient was informed verbally and in written form regarding the risks associated with the procedure including the low risk of serious infection, bleeding/bruising, allergic reaction, nerve or organ injury, paralysis, procedural site pain or discomfort, worsening pain and/or mobility, failure to treat and/or disfigurement. The patient expressed explicit understanding and consent to proceed. All materials required for the procedure were available prior to procedure start. Site and side were marked prior to procedure and confirmed in the presence of the patient. PROCEDURE IN DETAIL: The patient was brought to the procedural suite and placed in the prone position. Patient was made comfortable with use of pillows under the head/chest, hips and ankles. Skin overlying the injection site on the affected side(s) was prepared broadly with ChloraPrep applicator and draped in a sterile manner. Aseptic technique was used throughout. The right SI joint was identified in the AP view and contralateral oblique angulation with caudal tilt was utilized to optimize visualization of the inferior and medial joint line representing the posterior portion of the joint. Local anesthesia was established by infiltration with approximately 5 mL of 2% lidocaine via a 1-1/2 inch 27-gauge needle. A 22-gauge 3.5 inch Quincke spinal needle was advanced until the needle entered the inferior third of the joint space approximately 1cm cephalad from its most inferior point. In the AP view, 0.5 mL of Omnipaque 300 contrast medium was injected after negative aspiration for CSF, blood or other bodily fluid, showing appropriate intra-articular spread of contrast without evidence of intravascular, perineural or intrathecal placement. A 1.5 mL solution containing 5 mg of dexamethasone in 0.5% PF bupivacaine was injected after repeat negative aspiration. Appropriate spread of the injectate was confirmed with washout of previous injected contrast. No parasthesias were elicited. Needle was removed completely intact without difficulty. The same exact procedure was repeated for all remaining levels on the contralateral side, left SI joint, modified as necessary to accommodate for the new target location with identical findings/results and no evidence of complication. Images were saved and documented in the patient chart. Patient's skin was cleansed and sterile bandage applied. The patient tolerated the procedure well. The patient was transported to the recovery area in stable condition where they were observed for an appropriate amount of time prior to discharge, without evidence of complication. The patient was instructed to avoid excessive activity for the next 48 hours, including climbing and frequent use of stairs. Showers only for 48 hours. They were instructed not to drive or operate heavy machinery for 24 hours. They are to monitor for severe headaches, fevers, chills, night sweats, erythema/swelling at the site or any other signs of infection, bleeding/bruising, bowel or bladder changes as well as new pain, weakness or numbness in the upper or lower extremity. Should they notice these changes, they are instructed to call our office immediately or report directly to the nearest Emergency Department if no answer or if after posted office hours. COMPLICATIONS: None COMMENTS: None CONTRAST WASTED: [29]mL [Omnipaque 300]. Complications No immediate complications Condition Stable Disposition Same day [facility] Billing Surgery - Charge Forward: Surgery Billing
[2025-05-29 10:54] VITALS: BP 142/67; PULSE 77; RESP 12; O2SAT 98
[2025-05-29] MEDS: BUPivacaine HCL 0.5% 10 ML AMP 2 ML INFILTRATE (10:55)
[2025-05-29] MEDS: dexAMETHasone SOD PHOS INJ 10 MG/ML 1 ML VIAL IM (10:56)
[2025-05-29] MEDS: LIDOCAINE 1% PF INJ 5 ML VIAL INFILTRATE (10:56)
[2025-05-29 11:00] VITALS: BP 143/59; PULSE 68; RESP 11; O2SAT 98
[2025-05-29 11:04] VITALS: BP 129/60; PULSE 67; RESP 9; O2SAT 98
[2025-05-29 11:08] VITALS: BP 126/81; PULSE 72; RESP 16; O2SAT 100
== END 2025-05-29 11:21 | disposition home or self-care (01) ==
PROVIDERS: PCP Family Medicine; Visit Provider Anesthesiology Pain Medicine
PROC: (CPT G0260; principal; 2025-05-29 10:30)
DX: M46.1 Sacroiliitis, not elsewhere classified (principal)
CPT/HCPCS: G0260; 27096; 99199

== ENCOUNTER 2025-06-09 11:31 | Emergency (ER) | payer MEDICARE, SELFPAY ==
--- NOTE | ~2025-06-09 | XR_ITS ---
EXAMINATION: XR hand RT min 3V, 06/09/2025 11:45 PERSONAL FINANCE INSTRUCTOR HISTORY: fall COMPARISON: No comparisons available. Findings: No acute fracture or malalignment. Severe degenerative changes of the distal and proximal interphalangeal joints of the first metacarpal carpal joint. Soft tissues unremarkable. Impression: No acute fracture or malalignment. Reviewed, dictated and finalized at location P. ONAL FINANCE INSTRUCTOR Impression: No acute fracture or malalignment.
[2025-06-09 11:40] VITALS: BP 134/61; PULSE 72; RESP 18; TEMP 36.9; O2SAT 99
--- NOTE | 2025-06-09 11:44 | ED.UPPEXIN ---
HPI - Extremity Injury (Upper) General Chief Complaint: Extremity Injury, Upper Stated Complaint: fall Source: patient Mode of arrival: ambulatory Limitations: no limitations History of Present Illness HPI narrative: This is a 80 y/o female that presents to the urgent care with reports of right hand pain and bruising after falling. Patient states she was pulling on a garden hose when she started to fall forward. When she was falling forward she landed on both knees. She had some point hit her right hand. She states she did not realize she history and until a few moments later. She was able to get up and ambulate finished working. That she noticed she had a bruise to her anterior hand at the MIP of the second digit. patient denies any other distress or concerns otherwise. She states that it is tender and the bruising is slightly worse today, she is not on a blood thinner. Patient states her and family were concerned due to the previous size and asked her to go get an x-ray. Patient denies any complaint she has full range of motion neurovascular abnormality MD complaint: injury to: right Onset (ago): day(s) (1) Other Extremity Injury: Right: hand Other injuries: none Handedness: right Place: home Severity: mild Severity scale (1-10): 2 Relieving factors: none Exacerbating factors: none Context: fall Associated symptoms: denies other symptoms Related Data Home Medications ?Medication ?Instructions ?Recorded ?Confirmed ?Last Taken ?Type clobetasol 0.05 % scalp solution 1 applic topical DAILY 11/29/21 05/29/25 Unknown History spironolactone 100 mg tablet 100 mg PO DAILY 11/29/21 05/29/25 Unknown History calcium carbonate 600 mg PO DAILY 03/18/22 05/29/25 Unknown History wsqhdbyy-pgx-rhsxl ac 400 1 tablet PO .qd 03/18/22 05/29/25 Unknown History mcg-calcium carb 500 mg-vit K1 20 mcg tablet (Women's 50 Plus Multivitamin) saw palmetto 450 mg capsule 900 mg PO DAILY 03/18/22 05/29/25 Unknown History finasteride 5 mg tablet 5 mg PO DAILY 11/08/24 05/29/25 Unknown History biotin 10,000 mcg disintegrating 10,000 mcg PO DAILY 04/20/25 05/29/25 Unknown History tablet Allergies Allergy/AdvReac Type Severity Reaction Status Date / Time No Known Allergies Allergy Unknown Verified 06/09/25 11:40 Review of Systems Review of Systems: All systems reviewed & are unremarkable except as noted in HPI and below PMFSH Past Medical History Medical History (Updated 06/09/25 @ 12:21 by Kina Silverio APRN) Lumbar spondylosis Dorsalgia Sacroiliitis Abnormal ankle brachial index (VINICIO) left leg VINICIO 0.48 Patella-femoral syndrome Atypical meningioma of brain Chest wall contusion Contusion of face Aftercare following left finger joint replacement surgery Decreased platelet count BMI 28.0-28.9,adult BMI 27.0-27.9,adult Hypothyroidism Surgical History Surgical History History of hysterectomy History of cholecystectomy Family History Family History Father Hypertension Grandparent Cerebrovascular accident Diabetes mellitus Sibling Family history of Parkinson's disease Liver cancer Mother Family history of diabetes mellitus in first degree relative Diabetes mellitus Sibling Mental disorder Other Family history of cardiovascular disease Social History Social History (Updated 04/20/25 @ 09:51 by Ruby Burton MA) Social History: Aidee is very confident filling out medical forms. In the last 12 months she has not received assistance from an organization or program. 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 Patient states she was pulling on a garden hose when she started to fall forward. When she was falling forward she landed on both knees. She had some point hit her right hand. She states she did not realize she history and until a few moments later. She was able to get up and ambulate finished working. That she noticed she had a bruise to her anterior hand at the MIP of the second digit. patient denies any other distress or concerns otherwise. She states that it is tender and the bruising is slightly worse today, she is not on a blood thinner. Patient states her and family were concerned due to the previous size and asked her to go get an x-ray. Patient denies any complaint she has full range of motion neurovascular abnormality xray obtained noting noted No acute fracture or malalignment. educated the patient on results. discussed discharge and care. continue with Tylenol as needed for pain. Ice to the area as needed. Follow up with her primary as needed. Return to the emergency department as a worrisome sign or symptom Level of Care: Express Care Visit Vital Signs Vital signs: Vital Signs Temperature 98.4 F 06/09/25 11:40 Pulse Rate 72 06/09/25 11:40 Respiratory Rate 18 06/09/25 11:40 Blood Pressure 134/61 06/09/25 11:40 Pulse Oximetry 99 06/09/25 11:40 Oxygen Delivery Room Air 06/09/25 11:40 Temperature 98.4 F 06/09/25 11:40 Pulse Rate 72 06/09/25 11:40 Respiratory Rate 18 06/09/25 11:40 Blood Pressure 134/61 06/09/25 11:40 Pulse Oximetry 99 06/09/25 11:40 Oxygen Delivery Room Air 06/09/25 11:40 MDM - Extremity Injury (Upper) MDM Narrative Medical decision making narrative: This is a 80 y/o female that presents to the urgent care with reports of right hand pain and bruising after falling. Patient states she was pulling on a garden hose when she started to fall forward. When she was falling forward she landed on both knees. She had some point hit her right hand. She states she did not realize she history and until a few moments later. She was able to get up and ambulate finished working. That she noticed she had a bruise to her anterior hand at the MIP of the second digit. patient denies any other distress or concerns otherwise. She states that it is tender and the bruising is slightly worse today, she is not on a blood thinner. Patient states her and family were concerned due to the previous size and asked her to go get an x-ray. Patient denies any complaint she has full range of motion neurovascular abnormality xray of right hand obtained. noted No acute fracture or malalignment. Differential Diagnosis Differential diagnosis: Likely finger sprain and fracture of hand Medical Records Attestation: I reviewed the patient's medical records. 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 Findings: No acute fracture or malalignment. Severe degenerative changes of the distal and proximal interphalangeal joints of the first metacarpal carpal joint. Soft tissues unremarkable. Impression: No acute fracture or malalignment. Discharge Plan Discharge Clinical Impression: Hand injury Patient Disposition: Home Condition: Stable Instructions: Arthralgia (ED) Additional Instructions: continue with Tylenol as needed for pain. Ice to the area as needed. Follow up with her primary as needed. Return to the emergency department as a worrisome sign or symptom Patient Language: Kazakh Prescriptions: No Action saw palmetto 450 mg capsule 900 mg PO DAILY Rx Instructions: give with food (meal/snack) Women's 50 Plus Multivitamin 400 mcg-500 mg calcium-20 mcg tablet 1 tablet PO .qd calcium carbonate 600 mg calcium (1,500 mg) tablet 600 mg PO DAILY spironolactone 100 mg tablet 100 mg PO DAILY clobetasol 0.05 % solution 1 applic topical DAILY finasteride 5 mg tablet 5 mg PO DAILY biotin 10,000 mcg tablet,disintegrating 10,000 mcg PO DAILY levothyroxine 50 mcg tablet 50 mcg PO DAILY Qty: 90 1RF Follow-up/Referrals: Constantine Hall MD [Primary Care Provider, Family Practice] Time of Disposition: 12:20 Quality NIHSS Nursing Documentation ED NIHSS nursing documentation: reviewed/agree
--- OUTSIDE RECORDS SUMMARY | 2025-06-09 12:07 | XMS_ITS | Clinical Summary ---
Author Organization [facility] Address [address] [place] [id number] Care Team Providers Care Patient Placement Coordinator Name Role Phone Unavailable Primary Care Provider [...]
--- OUTSIDE RECORDS SUMMARY | 2025-06-09 12:07 | XMS_ITS | Clinical Summary ---
Author Organization [facility] Address [address] [place] [address] Care Team Providers Care General Laborer Name Role Phone Constantine Hall MD Primary Care Provider [phone] Constantine Hall MD Unavailable [phone] Jese Francis MD Unavailable [phone] Allergies No known active allergies Medications [...] 450 mg capsule Take by mouth Active benzonatate (TESSALON) 100 mg capsule Take 1 capsule (100 mg total) by mouth 2 (two) times a day as needed Active calcium carbonate (OS-NATHALIE) 1,500 mg (600 mg elemental) tablet Take 1 tablet (1,500 mg total) by mouth 03/18/2022 Active Active Problems Problem Noted Date Diagnosed Date 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 11/29/2020 Overview (11/29/2020): Added automatically from request for surgery [id number] History of COVID-19 11/12/2020 Polyarticular osteoarthritis 10/02/2020 Pulmonary hypertension 10/22/2018 Palpitations 07/29/2018 Hypothyroidism 07/29/2018 Chest tightness 07/29/2018 Gastroesophageal reflux disease without esophagi tis 07/29/2018 Fibrocystic breast changes, bilateral 03/02/2018 Menopause 12/21/2017 Asymptomatic microscopic hematuria 12/21/2017 Abnormal mammogram 02/06/2017 Atypical squamous cells of u ndetermined significance on cytologic smear of vagina (ASC-US) 12/31/[address] of the abdomen 12/19/2016 Abnormal cervical Papanicolaou smear 05/01/2015 Encounters Date Type Department Care Team Description 06/07/2025 Orders Only [facility] [address] [place] [address] 8 [place] [address] Trisha Lamb NP Encounter for screening mammogram for malignant neoplasm of breast (Primary Dx); History of abnormal mammogram; Fibrocystic breast changes of both breasts 06/06/2025 [facility] [address] [place] [address] 8 [place] [address] Trisha Lamb NP Screening Mammogram Bilateral W Magdi 06/05/2025 10:55 AM [facility] - 06/05/2025 11:59 PM [facility] Hospital Encounter [facility] - Breast Imaging [address] [place] [address] 8 [place] [address] Fibrocystic breast changes, bilateral; Encounter for screening mammogram for malignant neoplasm of breast Discharge Disposition: Discharge to home or self care 06/05/2025 10:30 AM [facility] [address] [place] [address] 8 [place] [address] Trisha Lamb NP Fibrocystic breast changes of both breasts (Primary Dx); Encounter for screening mammogram for malignant neoplasm of breast; History of abnormal mammogram 06/01/2025 Orders Only [facility] Medicine Surgery [address] [facility] Floor 8 [place] [address] Trisha Lamb NP Fibrocystic breast changes, bilateral (Primary Dx); Encounter for screening mammogram for malignant neoplasm of breast from Last 3 Months Immunizations Immunization Administration Dates Next Due Influenza, Quad, Adjuvantate d, Intramuscular 04/28/2020 Influenza, Quadrivalent, Rec ombinant, Egg Free, Preservative Free, Intramuscular 05/20/2019 Influenza, Trivalent, High D ose, Split, Preservative Free, Intramuscular 04/08/2018,04/10/2017,05/03/2015,04/26,07/21/2013 Pfizer SARS-CoV-2 Monovalent Vaccination (12+ Yrs) PURPLE 10/18/2020,10/08/2020,09/25/2020 Pneumococcal Conjugate PCV 13 04/10/2017 Pneumococcal Polysaccharide PPV23 05/03/2015 Tdap 08/03/2012 ZOSTER LIVE 02/05/2013 ZOSTER Recombinant 05/17/2024,04/28/2020 Surgical History Surgery Date Site/Laterality Comments COLONOSCOPY 08/03/2015 - 08/02/2016 SECTION x2 HYSTERECTOMY 08/03/1993 - 08/02/1994 total hysterectomy CHOLECYSTECTOMY 08/03/2015 - 08/02/2016 Medical History Medical [...] Brother 2 Cancer Brother 3 Oh H Ada Arthritis Father Royce M Caballero Heart attack Father Royce M Caballero Heart disease Father Royce M Caballero Hypertension Father Royce M Caballero Liver cancer Father Royce M Caballero Family his tory of liver cancer - (Added by TW Conv) Prostate cancer Father Royce Caballero Family history of malignant neoplasm of prostate - (Added by TW Conv) Diabetes Father's Brother Faustino Caballero Diabetes Maternal Grandfather Catarino [place] Diabetes Mother Michelle Caballero Heart attack Mother Michelle Caballero Fatal [place], age 51 Heart disease Mother Michelle Caballero Dementia Sister 1 Swapna Rivera Memory loss Sister 1 Swapna Rviera Memory loss Sister 2 Michelle Mendoza Relation [...] on file Legal Sex Female 2:09 AM [facility] Gender Identity Not on file Sexual Orientation Straight 05/06/2020 7: 28 PM CDT Obstetrics History Para Term AB IAB SAB Ectopic Multiple Livin g Live Births 2 2 Date Outcome GA Total Labor Labor/2nd/3rd [...] CDT Inhaled Oxygen Concentration - - Weight 68.8 kg (151 lb 9.6 oz) 06/05/2025 10:34 AM [facility] Height 168 cm (5' 6.14) 06/05/2025 10:34 AM [facility] Body Mass Index 24.36 06/05/2025 10:34 AM [facility] Plan of Treatment Health Maintenance Due Date Last Done Comments Depression Screening 1945 Hepatitis C Screening 1945 Osteoporosis Screening-Bone Density Scan 1945 Hepatitis B Screening 1965 Well Visit 65+ 2012 Fall Risk Assessment 12/25/2021 12/25/2020 DTaP/Tdap/Td Vaccine (2 - Td or Tdap) 08/03/2022 08/03/2012 Covid-19 Vaccine (2024-2 6 season) 2025 08/07/2021, 10/18/2020, 10/08/2020, Additional history exists Influenza Vaccine (#1) 2025 , 05/20/2019, 04/08/2018, Additional history exists Pneumococcal vaccine 65+ Completed 04/10/2017, 08/2014 Zoster Vaccine Completed 05/17/2024, 04/04, 02/05/2013 Breast Cancer Screening-Mammogram Discontinued 06/05/2025, 06/01/2024, 06/01/2023, Additional history exists Medical Devices Implanted Type Area Pointer Helper Device Identifier Shelf Expiration Date Model / Serial / Lot [employer] [id number] Wire Fixation Christian L100mm Od1.1mm Nonsterile - [id number] Implanted:Qty: 2 on 12/25/2020 by Pet, Jovanny Goel MD at [facility] [employer] [id number] / / Explanted Type Area Pointer Helper Device Identifier Shelf Expiration Date Model / Serial / Lot [employer] [id number] Wire Fixation Christian L100mm Od1.1mm Nonsterile - [id number] Explanted:Qty: 1 on 12/25/[address] [facility] [employer] [id number] / / Procedures Procedure Name Priority Date/Time Associated Diagnosis Comments SCREENING MAMMOGRAM BILATERAL W MAGDI Schedule Routine, Read Routine (OP Routine) 06/05/2025 11:43 AM [facility] Fibrocystic breast changes, bilateral from Last 3 Months Results * (ABNORMAL) Screening Mammogram Bilateral W Magdi (06/05/2025 11:43 AM [facility]) Anatomical Region Laterality Modality Breast Bilateral Mammography Impressions 06/06/2025 2:10 PM [facility] Bilateral No evidence of malignancy in either breast. OVERALL BI-RADS FINAL ASSESSMENT: 0 - Incomplete: Needs Additional Imaging Evaluation RECOMMENDATIONS: Technical Repeat is recommended for bilateral MLO views. Narrative 06/06/2025 2:10 PM [facility] EXAMINATION: Screening Mammogram Bilateral W Magdi: 06/05/2025 COMPARISON: Relevant prior studies available at the time of interpretation were reviewed, including the most recent mammogram on: 06/01/2024. TECHNIQUE: Mammography was performed with 2D and digital breast tomosynthesis (DBT) images. CAD was utilized. BREAST PARENCHYMAL COMPOSITION: There are scattered areas of fibroglandular density. FINDINGS: Bilateral There is no suspicious mass, calcification, or architectural distortion in either breast. Minimal inclusion of pectoralis muscles in bilateral MLO views. Trisha Lamb NP IMG MAMMO PROCEDURES Final Result from Last 3 Months Insurance [employer] MEDICARE [facility] MEDICARE [id number] [place] [id number] [facility] MEDICARE Care Teams General Laborer Relationship Specialty Start Date End Date Constantine Hall MD PCP - General 01/28/17 Constantine Hall MD 01/28/17 Jese Francis MD [facility] [place] [address] Referring Physician Obstetrics and Gynecology 03/08/21
--- OUTSIDE RECORDS SUMMARY | 2025-06-09 12:07 | XMS_ITS | Data Portability ---
Author Organization [facility] Address [address] [place] [address] [address] Care Team Providers Care Chocolate Packer Name Role Phone [facility] OTHER [phone] AZRA MTZ Primary Care Provider Assessment Encounter [...] HbA1c (hemoglobi n A1c), blood 2020 021 [facility] (Lab), [address], [place], [address], 1 13:00:39 urinalysis , dipstick 2019 020 [email or web address] [place], [address], [address], [place], [address], 0 22:34:16 Referral None recorded. Procedures None recorded. Surgeries None recorded. Imaging None recorded. Medication Orders None recorded. Patient TargetsNo targets recorded. Patient InstructionsNo instructions recorded. Reason for Referral None Reported. Results Created Date Observation Date Name Description Value Unit Range Abnormal Flag Note LastModifiedBy Organization Detail LastModifiedTime 01/19/20 20 01/21/2020 cultu re, urine specimen source Urine - Void Not Available [facility] ([facility]) [address], [place], [address], 01/21/2020 01:39:34 01/19/20 20 01/21/2020 cultu re, urine culture, urine See Below No growt h Not Available [facility] ([facility]) [address], [place], [address], 01/21/2020 01:39:34 01/19/20 20 01/23/2020 pap, LB [...] ded by [facility], [facility], d/b/a [facility], [address] [place] [address] Enzo Stevenson MD, Labor atory Direc tor. Case revie wed and diagn osis rende red at [facility], d/b/a [facility], [address] , [place] [address] Enzo Stevenson MD, [facility] tor. CONFI DENTI AL Not Available [facility]) [address], [place], [address], 01/23/2020 07:36:47 01/19/20 20 01/19/2020 urina lysis , dipst ick Blood trace Not Available [place] [address], [place], [address], 01/19/2020 12:54:20 01/19/20 20 01/19/2020 urina lysis , dipst ick Blood trace Not Available [place] [address], [place], [address], 01/19/2020 12:53:08 02/12/20 21 02/11/2021 CULTU RE: URINE result report SEE RESULT S BELOW Test: Cultu re: Urine Speci men Sourc e: Urine Voide d Speci men Type: Urine Speci men Date: 2020 12:14 PM Resul t Date: 2020 10:03 PM Resul t Statu s: Final resul t Abnor mal: No Resul ting Lab: [facility] [address] [facility] [address] Tel: CULTU RE ----- ----- ----- --- No growt h in 1 day (dete ction level of 10,00 0 colon ies / ml.) Not Available [facility] (Lab) [address] [facility], [place], [address], 02/12/2021 23:06:45 02/12/20 21 02/11/2021 IMAGE GUIDE [...] as clini americo velasco nted. Not Available [facility] ([facility]) [address], [place], [address], 02/13/2021 14:31:13 02/12/20 21 02/11/2021 urina lysis , dipst ick Blood +++ Not Available [place] [address], [place], [address], 02/11/2021 11:17:36 02/08/20 20 02/07/2020 DEXA No observ ation record ed. SVETLANA [place] [facility] [address], [place], [address], 02/09/2020 17:14:54 Result Notes None recorded. Problems Name Problem SNOMED Code Status Onset Date Resolution Date Notes Provider Name and Address Organization Details Recorded Time Abnormal cervical Papanico laou smear 844546084 Active 2014 Abnormal Pap smear of cervix;R ecorded Elsewher e: No Locat ion: [facility] S ource: [employer] Process Worker alicia: N Rosalbati ce ID: 0001 Raudel lable Time: 03:00:00 PM Not Available [facility] 0 16:00:52 Speciali zed medical examinat ion Completed 201402/11/2021 Gynecolo gical Examinat ion;Gasper rded Elsewher e: No Locat ion: [facility] S ource: [employer] Process Worker alicia: N Rosalbati ce ID: 0001 Raudel lable Time: 03:00:00 PM Meenakshi [facility] 1 10:28:[address] Concept Completed 201602/11/2021 Encntr for general adult medical exam w/o abnormal findings ;Recorde d Elsewher e: No Locat ion: [facility] S ource: [employer] Process Worker alicia: N Rosalbati ce ID: 0001 Raudel lable Time: 11:15:00 AM Meenakshi Castro [facility] 1 10:28:08 Atypical squamous cells of undeterm ined signific ance on vaginal Papanico laou smear 051486451 Active 2016 Atyp squam cell of undet signfc cyto smr vagn (ASC-US) ;Recorde d Elsewher e: No Locat ion: [facility] S ource: [employer] Process Worker alicia: N Rosalbati ce ID: 0001 Raudel lable Time: 11:14:57 AM Not Available [facility] 0 16:00:53 Menopaus e Active 2017 Asymptom atic menopaus al state;Re corded Elsewher e: No Locat ion: [facility] S ource: EHR [employer] Process Worker alicia: N Practi ce ID: 0001 Raudel lable Time: 11:15:00 AM Not Available [facility] 0 16:00:52 Asymptom at microsco pic hematuri a [id number] 202213 Completed 201702/11/2021 As[facility]om [facility] hematuri a;Record ed Elsewher e: No Locat ion: [facility] S ource: EHR [employer] Process Worker alicia: N Rosalbati ce ID: 0001 Raudel lable Time: 11:15:00 AM [facility] 1 10:28:16 Evaluati on finding Completed 201702/11/2021 Hematuri a, unspecif ied;Gasper rded Elsewher e: No Locat ion: [facility] S ource: EHR [employer] Process Worker alicia: N Annelise ce ID: 0001 Raudel lable Time: 11:15:00 AM Meenakshi barrios [facility] [address] 10:28:[address] Concept Completed 201802/11/2021 Encntr for obstetrics and gynecology professor exam (general ) (routine ) w/o abn findings ;Practic e ID: 0001 [facility] 10:28:10 Problem Notes None recorded. Procedures Surgical History Date Name Laterality Status Provider Name and Address Organization Details Recorded Time 12/26/19 21 arthrodesis of interphalangeal joint of finger completed [facility] 02/19/2021 13:30:38 03/12/20 20 Date of Last Mammogram completed [facility] 02/11/2021 10:27:43 03/03/20 20 completed [facility] 02/11/2021 10:57:27 01/21/20 20 Most Recent Bone Density completed [facility] 02/11/2021 10:27:43 01/19/20 20 Date of Last Pap Smear completed [facility] 02/11/2021 10:27:43 04/17/20 17 completed [facility] 02/11/2021 10:27:43 04/17/20 17 Date of Last Colonoscopy completed [facility] 02/11/2021 10:27:43 Tubal Ligation completed [facility] 02/11/2021 10:27:55 Caesarean Section completed [facility] 02/11/2021 10:27:55 Total Hysterectomy completed [facility] 02/11/2021 10:27:55 Imaging Results None recorded. Procedure Notes None recorded. Medical Equipment None Reported. Allergies No known drug allergies Medications Name Sig Start Date Stop Date Status Note LastModified by Organization Details LastModified Time metronida zole 500 mg tabs 01/18 completed Not Available Not Available Not Available levothyro xine sodium 75 mcg tabs active Not Available Not Available Not Available ciproflox acin hydrochlo ride 500 mg tabs 01/18 completed Not Available Not Available Not Available ondansetr on odt 4 mg tbdp 01/18 [...] Prescribe d Elsewhere : Yes Locat ion: [facility] Mo dify By: elizabeth abraham DateTime: 5 [...] Address Organization Details Last Updated DateTime 01/19/2020 08130.89 g 142/77 mm[Hg] Meenakshi Castro [facility] 01/19/2020 11:09:56 Date Recorded Body weight Systolic And Diastolic Provider Name and Address Organization Details Last Updated DateTime 02/11/2021 57779.4 g 153/92 mm[Hg] Meenakshi [facility] 02/11/2021 10:46:09 Date Recorded Body height Provider Name an d Address Organization Details Last Updated DateTime 02/17/2021 170.[address] [facility] 02/19/2021 13:27:11 Social History Question Answer Notes LastModified by Organizat ion Details LastModified Time Tobacco Smoking Status Never Smoker Meenakshi Castro [facility] 02/11/2021 10:27:52 Do You Have An [...] Or The Highest Degree You Have Received? [id number] Information not available 02/11/2021 Are There Any [...] anxious, or unable to sleep at night)? [id number] Information not available 02/11/2021 Family History Relationship [...] Codes Diagnosis Note 8460 Jese Francis MD [place] [address] [address] 01/19/2020 10:58:08 01/19/2020 13:33:31 Gynecologic examination 39479102 Z01.419 This patient is here for her [...] -ordered Cholestero l -done Pap - today [id number] Jese Francis MD [place] [address] [address] 02/11/2021 10:19:20 02/11/2021 11:14:27 Gynecologic examination [id number] Z01.419 This patient is here for her [...] Pandya Member ID Guarantor Name 02/11/2021 1 [facility] (MEDICARE REPLACEMENT/A DVANTAGE - PPO) [id number] Aidee Thompson [id number] Aidee Thompson Notes Date Note Type Note [...] screening. Jese Francis MD [address], [place], [address], [facility] 01/19/2020 13:27:20 02/12/20 21 text/htm l [...] exercise. Jese Francis MD [address], [place], [address], [facility] 02/11/2021 11:13:46 OBGyn Episode Ob Episode Information Episode Created Date Number of Fetuses Patient Bloodtype Patient rh Status Prepregnancy Weight lbs Domestic Partner Domestic Partner Phone Father Name Animation Artist Status 02/12/20 21 1 CLOSED Fetus Data First Name Last Name Admitted to NICU Weight (g) Sex Living Outcome Pediatric Complications Fetus ID Race Codes Race Delivery Type 2806.37 3704 M [id number] Primary Milton Calculation Initial Milton Date Initial [...] Domestic Partner Domestic Partner Phone Father Name Animation Artist Status 02/12/20 21 1 CLOSED Fetus Data First Name Last Name Admitted to NICU Weight (g) Sex Living Outcome Pediatric Complications Fetus ID Race Codes Race Delivery Type 3033.16 9704 M [id number] Repeat Milton Calculation Initial Milton Date Initial [...]
== END 2025-06-09 12:24 | disposition home or self-care (01) ==
PROVIDERS: Emergency Provider Nurse Practitioner Family; PCP Family Medicine
DX: S69.91XA Unspecified injury of right wrist, hand and finger(s), initial encounter (principal); W19.XXXA Unspecified fall, initial encounter; E03.9 Hypothyroidism, unspecified; M47.816 Spondylosis without myelopathy or radiculopathy, lumbar region
CPT/HCPCS: 73130; 99213; G0463